=== PATIENT | female | born 1940 | race Hispanic/Latino ===

== ENCOUNTER 2018-08-31 08:02 | Emergency (ER) | payer MEDICARE, OTHER ==
[~2018-08-31] VITALS: Ht 12.7 cm; Wt 65.8 kg
--- OUTSIDE RECORDS SUMMARY | 2018-08-31 08:05 | XMS REPORT | Continuity of Care Document ---
Author Author [facility] Interface Address Unknown Phone Unavailable Problems Problem Status Onset Date Classification Date Reported Comments Source Discharge Diagnosis: Alcohol abuse 04/06/2017 04/09/2017 [facility] Discharge Diagnosis: N&V 04/06/2017 04/09/2017 [facility] VOMITING Active 04/05/2017 [facility] Atrial fibrillation Resolved Problem 04/09/2017 [facility] DM (<span ID="[id number]">Confirmed</span>) Resolved Problem 04/09/2017 [facility] Hyperlipidemia Resolved Problem 04/09/2017 [facility] Medications Medication Details Route Status Patient Instructions Ordering Provider Order Date Source Metoclopramide 10 MG Oral Tablet [Reglan] 10 mg=1 tab, PO, QID, X 10 day, # 40 tab, 0 Refill(s) Active 04/06/2017 [facility] iodixanol 100 mL, Route: IVP, Drug Form: SOLN, kg, ONCALL, STAT, Start date: 04/06/17 3:32:00 CDT, Duration: 1 doses or times, Dose=2.2ml/kg, Max [id number] -- "To be infused by Radiology Staff ONLY" Inactive 04/06/2017 [facility] Sodium Chloride 0.154 MEQ/ML Injectable Solution 1,000 mL, 1,000 ml/hr, Infuse Over: 1 hr, Route: IV, 1,000, Drug form: INJ, ONCE, Priority: STAT, kg, Start date: 04/06/17 3:20:00 CDT, Duration: 1 doses or times, Stop date: 04/06/17 3:20:00 CDT Inactive 04/06/2017 [facility] Allergies, Adverse Reactions, Alerts Substance Category Reaction Severity Reaction type Status Date Reported Comments Source Immunizations Immunization Date Given Site Status Last Updated Comments Source Results Order Name Results Value Reference Range Date Interpretation Comments Source CHEM PANEL Lactic Acid WB 1.9 mmol/L 0.5 - 2.2 04/06/2017 [facility] CHEM PANEL Lactic Acid Lvl 1.7 mMol/L 0.5 - 2.2 04/06/2017 [facility] HEMATOLOGY Split [place] Rapid 0.5 min 04/06/2017 [facility] HEMATOLOGY ACT (TEG) Rapid 113 s 86 - 118 04/06/2017 [facility] HEMATOLOGY Max Amplitude Rapid 68 mm 52 - 71 04/06/2017 [facility] HEMATOLOGY Angle Rapid 78 degrees 64 - 80 04/06/2017 [facility] HEMATOLOGY Estimated % Lysis Rapid 1.3 % 0.0 - 7.5 04/06/2017 [facility] HEMATOLOGY R-time Rapid 0.7 min 0.4 - 0.7 04/06/2017 [facility] HEMATOLOGY G-value Rapid 10.5 K d/sc 5.0 - 11.6 04/06/2017 [facility] HEMATOLOGY K-time Rapid 0.8 min 0.6 - 2.3 04/06/2017 [facility] HEMATOLOGY INR 1.09 0.85 - 1.17 04/06/2017 [facility] HEMATOLOGY PTT 29.7 s 22.9 - 35.8 04/06/2017 [facility] HEMATOLOGY PT 14.3 s 12.0 - 14.7 04/06/2017 [facility] URINE AND STOOL UA Leuk Est Negative (04/06/17 3:53 AM) Negative 04/06/2017 [facility] URINE AND STOOL Micro? Performed (04/06/17 3:53 AM) 04/06/2017 [facility] URINE AND STOOL UA Nitrite Negative (04/06/17 3:53 AM) Negative 04/06/2017 [facility] URINE AND STOOL UA Sq Epi Few /LPF Few /LPF 04/06/2017 [facility] URINE AND STOOL UA Bacteria Few /HPF None Seen /HPF 04/06/2017 [facility] URINE AND STOOL UA RBC 0-2 /HPF 0 - 2 04/06/2017 [facility] URINE AND STOOL UA WBC 0-2 /HPF None Seen /HPF 04/06/2017 [facility] URINE AND STOOL UA Glucose 250 mg/dL Negative mg/dL 04/06/2017 [facility] URINE AND STOOL UA Ketones 15 mg/dL Negative mg/dL 04/06/2017 [facility] URINE AND STOOL UA Urobilinogen 0.2 EU/dL 0.1 - 1.0 04/06/2017 [facility] URINE AND STOOL UA Blood Small *ABN* (04/06/17 3:53 AM) Negative 04/06/2017 [facility] URINE AND STOOL UA Bili Negative *NA* (04/06/17 3:53 AM) Negative 04/06/2017 [facility] URINE AND STOOL UA pH 6.0 5.0 - 8.0 04/06/2017 [facility] URINE AND STOOL UA Protein Trace *ABN* (04/06/17 3:53 AM) Negative 04/06/2017 [facility] URINE AND STOOL UA Color Yellow *NA* (04/06/17 3:53 AM) Yellow 04/06/2017 [facility] URINE AND STOOL UA Spec Grav 1.010 <=1.030 04/06/2017 [facility] URINE AND STOOL UA Turbidity Slight Cloudy (04/06/17 3:53 AM) Clear 04/06/2017 [facility] CARDIAC ENZYMES Troponin-I null 0.00 - 0.40 04/06/2017 [facility] CHEM PANEL Lipase Lvl 400 unit/L 73 - 393 04/06/2017 [facility] CHEM PANEL Globulin 3.5 g/dL 2.7 - 4.2 04/06/2017 [facility] CHEM PANEL Bili Indirect 0.2 mg/dL 0.0 - 1.0 04/06/2017 [facility] CHEM PANEL A/G Ratio 1.1 0.7 - 1.6 04/06/2017 [facility] CHEM PANEL ALT 15 unit/L 0 - 65 04/06/2017 [facility] CHEM PANEL Bili Direct 0.1 mg/dL 0.0 - 0.3 04/06/2017 [facility] CHEM PANEL Bili Total 0.3 mg/dL 0.2 - 1.3 04/06/2017 [facility] CHEM PANEL AST 15 unit/L 0 - 37 04/06/2017 [facility] CHEM PANEL Alk Phos 74 unit/L 39 - 136 04/06/2017 [facility] CHEM PANEL Albumin Lvl 4.0 g/dL 3.5 - 5.0 04/06/2017 [facility] CHEM PANEL Total Protein 7.5 g/dL 6.4 - 8.4 04/06/2017 [facility] CHEM PANEL Lactic Acid WB 3.9 mmol/L 0.5 - 2.2 04/06/2017 [facility] ELECTROLYTES AGAP 14.5 meq/L 10.0 - 20.0 04/06/2017 [facility] ELECTROLYTES eGFR 56 mL/min/1.73m2 04/06/2017 Result Comment: The eGFR is calculated using the CKD-EPI formula. In most young, healthy individuals the eGFR will be >90 mL/min/1.73m2. The eGFR declines with age. An eGFR of 60-89 may be normal in some populations, particularly the elderly, for whom the CKD-EPI formula has not been extensively validated. Use of the eGFR is not recommended in the following populations: Individuals with unstable creatinine concentrations, including patients and those with serious co-morbid conditions. Patients with extremes in muscle mass or diet. The data above are obtained from the National Kidney Disease Education Program (NKDEP) which additionally recommends that when the eGFR is used in patients with extremes of body mass index for purposes of drug dosing, the eGFR should be multiplied by the estimated BMI. [facility] ELECTROLYTES CO2 27 meq/L 24 - 32 04/06/2017 [facility] ELECTROLYTES Chloride Lvl 94 meq/L 95 - 109 04/06/2017 [facility] ELECTROLYTES Potassium Lvl 3.5 meq/L 3.5 - 5.1 04/06/2017 [facility] ELECTROLYTES Sodium Lvl 132 meq/L 135 - 145 04/06/2017 [facility] ELECTROLYTES Creatinine Lvl 1.00 mg/dL 0.50 - 1.40 04/06/2017 [facility] ELECTROLYTES BUN 18 mg/dL 7 - 22 04/06/2017 [facility] ELECTROLYTES Calcium Lvl 9.8 mg/dL 8.5 - 10.5 04/06/2017 [facility] ELECTROLYTES Glucose Lvl 238 mg/dL 70 - 99 04/06/2017 [facility] HEMATOLOGY RDW 13.8 % 11.5 - 14.5 04/06/2017 [facility] HEMATOLOGY MCHC 33.0 g/dL 32.0 - 36.0 04/06/2017 [facility] HEMATOLOGY MCH 29.9 pg 27.0 - 31.0 04/06/2017 [facility] HEMATOLOGY MCV 90.4 fL 80.0 - 98.0 04/06/2017 [facility] HEMATOLOGY Hct 38.8 % 36.0 - 48.0 04/06/2017 [facility] HEMATOLOGY MPV 7.6 fL 7.4 - 10.4 04/06/2017 [facility] HEMATOLOGY Platelet 212 K/CMM 133 - 450 04/06/2017 [facility] HEMATOLOGY Hgb 12.8 g/dL 12.0 - 16.0 04/06/2017 [facility] HEMATOLOGY RBC 4.29 M/CMM 4.20 - 5.40 04/06/2017 [facility] HEMATOLOGY WBC 9.4 K/CMM 3.7 - 10.4 04/06/2017 [facility] HEMATOLOGY Eosinophils # 0.1 K/CMM 0.0 - 0.5 04/06/2017 [facility] HEMATOLOGY Lymphocytes # 1.1 K/CMM 1.0 - 5.5 04/06/2017 [facility] HEMATOLOGY Basophils 0.3 % 0.0 - 1.0 04/06/2017 [facility] HEMATOLOGY Segs-Bands # 7.8 K/CMM 1.5 - 8.1 04/06/2017 [facility] HEMATOLOGY Monocytes # 0.4 K/CMM 0.0 - 0.8 04/06/2017 [facility] HEMATOLOGY Lymphocytes 12.1 % 20.0 - 40.0 04/06/2017 [facility] HEMATOLOGY Monocytes 4.4 % 2.0 - 12.0 04/06/2017 [facility] HEMATOLOGY Eosinophils 0.8 % 0.0 - 4.0 04/06/2017 [facility] HEMATOLOGY Segs 82.4 % 45.0 - 75.0 04/06/2017 [facility] Chest 1view DX Chest 1view DX EXAM: XR CHEST 1 VIEW DATE: 04/06/2017 4:40 AM CDT INDICATION: Cough COMPARISON: None TECHNIQUE: AP semierect chest FINDINGS: Lines and tubes: None. Lungs and pleura: No pulmonary or pleural based abnormality is identified. Heart and mediastinum: The heart size is mildly enlarged. There is a mildly tortuous thoracic aorta. Bones: No acute bony abnormality is identified. IMPRESSION: Mild cardiomegaly without acute cardiopulmonary abnormality. [place] SECTION: ER 04/06/2017 - - This report was dictated by a Manager [employer]/Fellow. I have personally reviewed the images as well as the Resident's interpretation and agree with the findings. Read by: Manuel Johnson MD Resident: Manuel Johnson MD Dictated Date/time: 04/06/17 04:59 Electronically Signed by: Nghia Nielsen MD 04/06/17 06:27 FINAL REPORT [facility] Abdomen/Pelvis w IV contrast CT Abdomen/Pelvis w IV contrast CT EXAM: CT ABDOMEN AND PELVIS WITH CONTRAST DATE: 04/06/2017 at 0336 hours INDICATION: - abdominal pain ADDITIONAL INFORMATION: None. COMPARISON: None. TECHNIQUE: Volumetric CT acquisition of the abdomen and pelvis after the intravenous administration contrast. Axial, coronal and sagittal reconstructions. Postcontrast phases: Venous and delayed. IV contrast: 100 mL of Visipaque 320 Enteric contrast: None. DLP: 1735 mGy-cm FINDINGS: Lines, tubes and hardware: None. Lower thorax: Clear. Liver: Normal. Biliary tree: No intra- or extrahepatic biliary ductal dilation. Gallbladder: Surgically absent. Pancreas: Normal. Spleen: Normal. Adrenals: Normal. Kidneys and ureters: * Mild nonspecific perinephric fat stranding of unlikely clinical significance. * Otherwise normal. Bladder: Normal. Reproductive organs: Uterus and adnexa are unremarkable. Gastrointestinal tract: Normal caliber. Appendix: Not seen. No inflammatory changes. Peritoneum, mesentery and retroperitoneum: No free air, ascites or loculated fluid. Lymph nodes: Normal. Vasculature: Normal. Bones: No acute abnormality. * Chronic compression deformity at L2 vertebral body with approximately 25% maximum central height loss. * Grade 1 anterolisthesis of L4 on L5 secondary to facet arthropathy. Soft tissues: Normal. IMPRESSION: 1. No acute abnormality identified in the abdomen or pelvis. 2. Chronic compression deformity at L2 vertebral body with approximately 25% maximum central height loss. 3. Grade 1 anterolisthesis of L4 on L5 secondary to facet arthropathy. 04/06/2017 - - This report was dictated by a Manager [employer]/Fellow. I have personally reviewed the images as well as the Resident's interpretation and agree with the findings. Read by: Manuel Johnson MD Resident: Manuel Johnson MD Dictated Date/time: 04/06/17 03:56 Electronically Signed by: Franky Vogt MD 04/06/17 06:24 FINAL REPORT [facility] Brain wo contrast CT Brain wo contrast CT EXAM: CT HEAD WITHOUT CONTRAST DATE: 04/06/2017 331 AM CDT INDICATION: 76 years old Female patient with history of AMS. TECHNIQUE: Multiple axial images were obtained through the head from vertex to the skull base. Axial bone algorithm reconstruction images are provided. COMPARISON: None. FINDINGS: There is diffuse mild to moderate cerebral volume loss causing mild ex- vacuo enlargement of the ventricular system and extra-axial fluid spaces. No evidence of obstructive hydrocephalus or pathological extra-axial fluid collection is seen. Chronic lacunar infarcts involving the right thalamus. Multiple scattered as well as confluent hypodense areas within periventricular, deep white matter bilaterally, likely related to chronic microvascular ischemic changes. No definite evidence of acute cerebral edema, mass effect, midline shift is seen. There is no intracranial hemorrhage. Basal cisterns are well preserved. There is no evidence of downward herniation at the level of foramen magnum. Calvarium is intact. Left maxillary sinus mucous retention cyst, remaining visualized paranasal sinuses are clear. Mastoid air cells are well aerated. Visualized orbits appear grossly unremarkable. Calcified atherosclerotic plaques are noted within the bilateral carotid siphons and intracranial vertebral arteries. IMPRESSION: 1. No definite territorial infarct or intracranial hemorrhage. 2. Diffuse mild to moderate cerebral volume loss. Sequela of mild chronic microvascular ischemic changes. These findings are in agreement with previous preliminary report made by retail loss prevention investigator president finance company. 04/06/2017 - - This report was dictated by a Manager [employer]/Fellow. I have personally reviewed the images as well as the Resident's interpretation and agree with the findings. Read by: Manuel Johnson MD Resident: Manuel Johnson MD Dictated Date/time: 04/06/17 03:40 Electronically Signed by: Kuldip Floyd MD 04/06/17 07:44 FINAL REPORT [facility] Vital Signs Vital Sign Value Date Comments Source Respitory Rate 20 04/06/2017 [facility] Systolic (mm Hg) 168 04/06/2017 [facility] Diastolic (mm Hg) 79 04/06/2017 [facility] Systolic (mm Hg) 180 04/06/2017 [facility] Diastolic (mm Hg) 99 04/06/2017 [facility] Respitory Rate 16 04/06/2017 [facility] Respitory Rate 15 04/06/2017 [facility] Systolic (mm Hg) 180 04/06/2017 [facility] Diastolic (mm Hg) 82 04/06/2017 [facility] Heart Rate 104 04/06/2017 [facility] Temperature Oral (F) 98.0 F 04/06/2017 [facility] Encounters Location Location Details Encounter Type Encounter Number Reason For Visit Attending Provider ADM Date DC Date Status Source [facility] Emergency [id number] Adia Garciajohnnie 04/06/2017 04/06/2017 [facility] Procedures Procedure Code Date Perfomer Comments Source Cholecystocecostomy [id number] [facility] Tubal ligation [id number] [facility]
--- OUTSIDE RECORDS SUMMARY | 2018-08-31 08:05 | XMS REPORT | Summary of Care ---
Author Author [facility] Organization [facility] Address Unknown Phone Unavailable Encounter AJAY Barker(JIL) [id number] Date(s): 04/06/17 - 04/06/17 [facility] [address] [employer] provided by [facility] [employer] [place] [address]- Discharge Diagnosis: Alcohol abuse Discharge Diagnosis: N&V (nausea and vomiting) Discharge Disposition: Home or Self Care Attending Physician: Adia Gagnon MD Vital Signs 1 2 3 Most recent to oldest [Reference Range]: 98.0 DegF (04/06/17 1:48 AM) Temperature Oral [96.4-99.1 DegF] 168/79 mmHg *HI* (04/06/17 5:22 AM) 180/99 mmHg *HI* (04/06/17 4:20 AM) 180/82 mmHg *HI* (04/06/17 3:21 AM) Blood Pressure [90-140/60-90 mmHg] 20 BRMIN (04/06/17 5:22 AM) 16 BRMIN (04/06/17 4:20 AM) 15 BRMIN (04/06/17 3:21 AM) Respiratory Rate [14-20 BRMIN] 104 bpm *HI* (04/06/17 1:48 AM) Peripheral Pulse Rate [60-100 bpm] Problem List Condition Effective Dates Status Health Status Informant Atrial Resolved fibrillation(Confirm ed) DM (diabetes Resolved mellitus)(Confirmed) Hyperlipidemia(Confi Resolved rmed) Allergies, Adverse Reactions, Alerts Substance Reaction Severity Status NKDA Active Medications NS (Bolus) IV 1,000 mL, 1,000 ml/hr, Infuse Over: 1 hr, Route: IV, 1,000, Drug form: INJ, ONCE , Priority: STAT, kg, Start date: 04/06/17 3:20:00 CDT, Duration: 1 doses or jennifer es, Stop date: 04/06/17 3:20:00 CDT Start Date: 04/06/17 Stop Date: 04/06/17 Status: Completed Reglan 10 mg oral tablet 10 mg=1 tab, PO, QID, X 10 day, # 40 tab, 0 Refill(s) Start Date: 04/06/17 Stop Date: 04/16/17 Status: Ordered Visipaque 320mg/ml 100 mL, Route: IVP, Drug Form: SOLN, kg, ONCALL, STAT, Start date: 04/06/17 3:32 :00 CDT, Duration: 1 doses or times, Dose=2.2ml/kg, Max [id number] -- "To be in fused by Radiology Staff ONLY" Start Date: 04/06/17 Stop Date: 04/06/17 Status: Completed Results ELECTROLYTES Most recent to 1 2 oldest [Reference Range]: Sodium Lvl [135-145 132 mEq/L mEq/L] *LOW* (04/06/17 2:55 AM) Potassium Lvl 3.5 mEq/L [3.5-5.1 mEq/L] (04/06/17 2:55 AM) Chloride Lvl [95-109 94 mEq/L mEq/L] *LOW* (04/06/17 2:55 AM) CO2 [24-32 mEq/L] 27 mEq/L (04/06/17 2:55 AM) AGAP [10.0-20.0 14.5 mEq/L mEq/L] (04/06/17 2:55 AM) CHEM PANEL Most recent to 1 2 oldest [Reference Range]: Creatinine Lvl 1.00 mg/dL [0.50-1.40 mg/dL] (04/06/17 2:55 AM) eGFR 56 mL/min/1.73m2 1 *NA* (04/06/17 2:55 AM) BUN [7-22 mg/dL] 18 mg/dL (04/06/17 2:55 AM) Glucose Lvl [70-99 238 mg/dL mg/dL] *HI* (04/06/17 2:55 AM) Total Protein 7.5 g/dL [6.4-8.4 g/dL] (04/06/17 2:55 AM) Albumin Lvl [3.5-5.0 4.0 g/dL g/dL] (04/06/17 2:55 AM) Globulin [2.7-4.2 3.5 g/dL g/dL] (04/06/17 2:55 AM) A/G Ratio [0.7-1.6] 1.1 (04/06/17 2:55 AM) Calcium Lvl 9.8 mg/dL [8.5-10.5 mg/dL] (04/06/17 2:55 AM) ALT [0-65 unit/L] 15 unit/L (04/06/17 2:55 AM) AST [0-37 unit/L] 15 unit/L (04/06/17 2:55 AM) Alk Phos [39-136 74 unit/L unit/L] (04/06/17 2:55 AM) Bili Total [0.2-1.3 0.3 mg/dL mg/dL] (04/06/17 2:55 AM) Bili Direct [0.0-0.3 0.1 mg/dL mg/dL] (04/06/17 2:55 AM) Bili Indirect 0.2 mg/dL [0.0-1.0 mg/dL] (04/06/17 2:55 AM) Lipase Lvl [73-393 400 unit/L unit/L] *HI* (04/06/17 2:55 AM) Lactic Acid Lvl 1.7 mMol/L [0.5-2.2 mMol/L] (04/06/17 5:11 AM) Lactic Acid WB 1.9 mmol/L 3.9 mmol/L [0.5-2.2 mmol/L] (04/06/17 5:11 AM) *HI* (04/06/17 2:55 AM) 1Result Comment: The eGFR is calculated using the [...] from the National Kidney Disease Education Program ( NKDEP) which additionally recommends that when the eGFR is used in patients with extremes of body mass index for purposes of drug dosing, the eGFR should be mul tiplied by the estimated BMI. CARDIAC ENZYMES Most recent to 1 2 oldest [Reference Range]: Troponin-I <0.02 ng/mL [0.00-0.40 ng/mL] (04/06/17 2:55 AM) URINE AND STOOL Most recent to 1 2 oldest [Reference Range]: UA Turbidity [Clear] Slight Cloudy (04/06/17 3:53 AM) UA Color [Yellow] Yellow *NA* (04/06/17 3:53 AM) UA pH [5.0-8.0] 6.0 (04/06/17 3:53 AM) UA Spec Grav 1.010 [<=1.030] (04/06/17 3:53 AM) UA Glucose [Negative 250 mg/dL mg/dL] *ABN* (04/06/17 3:53 AM) UA Blood [Negative] Small *ABN* (04/06/17 3:53 AM) UA Ketones [Negative 15 mg/dL mg/dL] *ABN* (04/06/17 3:53 AM) UA Protein Trace [Negative] *ABN* (04/06/17 3:53 AM) UA Urobilinogen 0.2 EU/dL [0.1-1.0 EU/dL] (04/06/17 3:53 AM) UA Bili [Negative] Negative *NA* (04/06/17 3:53 AM) UA Leuk Est Negative [Negative] (04/06/17 3:53 AM) UA Nitrite Negative [Negative] (04/06/17 3:53 AM) UA WBC [None Seen 0-2 /HPF /HPF] (04/06/17 3:53 AM) UA RBC [0-2 /HPF] 0-2 /HPF (04/06/17 3:53 AM) UA Bacteria [None Few /HPF Seen /HPF] (04/06/17 3:53 AM) UA Sq Epi [Few /LPF] Few /LPF (04/06/17 3:53 AM) Micro? Performed (04/06/17 3:53 AM) HEMATOLOGY Most recent to 1 2 oldest [Reference Range]: WBC [3.7-10.4 K/CMM] 9.4 K/CMM (04/06/17 2:55 AM) RBC [4.20-5.40 4.29 M/CMM M/CMM] (04/06/17 2:55 AM) Hgb [12.0-16.0 g/dL] 12.8 g/dL (04/06/17 2:55 AM) Hct [36.0-48.0 %] 38.8 % (04/06/17 2:55 AM) MCV [80.0-98.0 fL] 90.4 fL (04/06/17 2:55 AM) MCH [27.0-31.0 pg] 29.9 pg (04/06/17 2:55 AM) MCHC [32.0-36.0 33.0 g/dL g/dL] (04/06/17 2:55 AM) RDW [11.5-14.5 %] 13.8 % (04/06/17 2:55 AM) Platelet [133-450 212 K/CMM K/CMM] (04/06/17 2:55 AM) MPV [7.4-10.4 fL] 7.6 fL (04/06/17 2:55 AM) Segs [45.0-75.0 %] 82.4 % *HI* (04/06/17 2:55 AM) Lymphocytes 12.1 % [20.0-40.0 %] *LOW* (04/06/17 2:55 AM) Monocytes [2.0-12.0 4.4 % %] (04/06/17 2:55 AM) Eosinophils [0.0-4.0 0.8 % %] (04/06/17 2:55 AM) Basophils [0.0-1.0 0.3 % %] (04/06/17 2:55 AM) Segs-Bands # 7.8 K/CMM [1.5-8.1 K/CMM] (04/06/17 2:55 AM) Lymphocytes # 1.1 K/CMM [1.0-5.5 K/CMM] (04/06/17 2:55 AM) Monocytes # [0.0-0.8 0.4 K/CMM K/CMM] (04/06/17 2:55 AM) Eosinophils # 0.1 K/CMM [0.0-0.5 K/CMM] (04/06/17 2:55 AM) PT [12.0-14.7 14.3 seconds seconds] (04/06/17 4:09 AM) INR [0.85-1.17] 1.09 (04/06/17 4:09 AM) PTT [22.9-35.8 29.7 seconds seconds] (04/06/17 4:09 AM) ACT (TEG) Rapid 113 seconds [86-118 seconds] (04/06/17 4:09 AM) Split Point Rapid 0.5 minutes *NA* (04/06/17 4:09 AM) R-time Rapid 0.7 minutes [0.4-0.7 minutes] (04/06/17 4:09 AM) K-time Rapid 0.8 minutes [0.6-2.3 minutes] (04/06/17 4:09 AM) Angle Rapid [64-80 78 degrees degrees] (04/06/17 4:09 AM) Max Amplitude Rapid 68 mm [52-71 mm] (04/06/17 4:09 AM) G-value Rapid 10.5 K d/sc [5.0-11.6 K d/sc] (04/06/17 4:09 AM) Estimated % Lysis 1.3 % Rapid [0.0-7.5 %] (04/06/17 4:09 AM) Immunizations No data available for this section Procedures Procedure Date Related Diagnosis Body Site Cholecystocecostomy Tubal ligation Social History Social History Type Response Alcohol Current Smoking Status Never smoker; Exposure to Tobacco Smoke None; Cigarette Smoking Last 365 Days No; Reg Smoking Cessation Counseling No Assessment and Plan No data available for this section
[2018-08-31] MEDS ORDERED: IOPAMIDOL 300 MG/ML 15ML VIAL IT ONE (09:22)
[2018-08-31] MEDS ORDERED: LAMOTRIGINE100 MG PEG (09:27)
[2018-08-31] MEDS ORDERED: APIXABAN PEG (09:27)
[2018-08-31] MEDS ORDERED: DIABETISOURCE PEG (09:27)
[2018-08-31] MEDS ORDERED: MAGOX 400400 MG PEG (09:27)
[2018-08-31] MEDS ORDERED: POTASSIUM40 MEQ/15 PEG (09:27)
[2018-08-31] MEDS ORDERED: HUMULIN N100 UNITS/ SC (09:27)
[2018-08-31] MEDS ORDERED: LEVETIRACETAM500 MG PEG (09:27)
[2018-08-31] MEDS ORDERED: ATIVAN0.5 MG PO (09:27)
[2018-08-31] MEDS ORDERED: AMBIEN5 MG PEG (09:27)
[2018-08-31] MEDS ORDERED: GLIPIZIDE5 MG PO (09:27)
[2018-08-31] MEDS ORDERED: MIRALAX17 GM PEG (09:27)
[2018-08-31] MEDS ORDERED: VASOTEC10 M1 PEG (09:27)
[2018-08-31] MEDS ORDERED: ATORVASTATIN CA20 MG PO (09:27)
[2018-08-31] MEDS ORDERED: FAMOTIDINE20 MG PEG (09:27)
[2018-08-31] MEDS ORDERED: ULTRAM 50MG50 MG PEG (09:27)
[2018-08-31 12:22] VITALS: BP 165/98
--- NOTE | 2018-08-31 12:47 | Diagnostic Imaging Report ---
Date and Time: 08/31/2018 Procedure: Replacement of dislodged percutaneous gastrostomy catheter nitrate operator: Dr. Moss Pre-operative diagnosis: Dislodged percutaneous gastrostomy Post-operative diagnosis: Replaced percutaneous gastrostomy Conscious Sedation: None Additional Medications: None Fluoroscopy time: 0.6 minutes Frontal Air Kerma: 11.68 mGy Contrast used: 15 cc Isovue-300 Estimated blood loss: Minimal Blood products administered: None Specimens: Yang catheter, discarded Implants: 24 Cuban balloon retention gastrostomy Condition at completion: Stable Disposition: Return to emergency center DISCUSSION: Informed consent was obtained from the next of kin and documented in the medical record. The patient was placed in the supine position on the fluoroscopic table. The upper abdomen and existing Yang catheter placed percutaneously into the gastrostomy tract by emergency center personnel were prepped and draped in the standard sterile fashion. A small amount of dilute contrast material was injected through the Yang catheter with resultant opacification of the stomach. The Yang catheter was removed and a 0.0 3 5-in. Amplatz wire was gently advanced through the tract and into the gastric fundus under fluoroscopic guidance. A 24 Cuban balloon retention gastrostomy catheter was then advanced over the wire under fluoroscopic guidance. The retention balloon was inflated with 6 cc sterile saline per patient services specialist recommendations and the balloon catheter was retracted to the anterior gastric wall. The wire was removed. Injection of dilute contrast material confirmed appropriate position of the gastrostomy catheter within the distal gastric body. The catheter was then flushed with sterile saline and a sterile dressing was applied. The patient tolerated the procedure well without immediate complication. IMPRESSION: Successful replacement of a dislodged percutaneous gastrostomy catheter under fluoroscopic guidance. The new catheter is a 24 Cuban balloon retention gastrostomy and may be used immediately. Signed by: Dr. Nghia Moss M.D. on 08/31/2018 12:44 PM
--- NOTE | 2018-08-31 12:47 | Diagnostic Imaging Report ---
Date and Time: 08/31/2018 Procedure: Replacement of dislodged percutaneous gastrostomy catheter rubbing bed operator: Dr. Moss Pre-operative diagnosis: Dislodged percutaneous gastrostomy Post-operative diagnosis: Replaced percutaneous gastrostomy Conscious Sedation: None Additional Medications: None Fluoroscopy time: 0.6 minutes Frontal Air Kerma: 11.68 mGy Contrast used: 15 cc Isovue-300 Estimated blood loss: Minimal Blood products administered: None Specimens: Yang catheter, discarded Implants: 24 [place]i balloon retention gastrostomy Condition at completion: Stable Disposition: Return to emergency center DISCUSSION: Informed consent was obtained from the next of kin and documented in the medical record. The patient was placed in the supine position on the fluoroscopic table. The upper abdomen and existing Yang catheter placed percutaneously into the gastrostomy tract by emergency center personnel were prepped and draped in the standard sterile fashion. A small amount of dilute contrast material was injected through the Yang catheter with resultant opacification of the stomach. The Yang catheter was removed and a 0.0 3 5-in. Amplatz wire was gently advanced through the tract and into the gastric fundus under fluoroscopic guidance. A 24 [place]i balloon retention gastrostomy catheter was then advanced over the wire under fluoroscopic guidance. The retention balloon was inflated with 6 cc sterile saline per hospital nurse liaison recommendations and the balloon catheter was retracted to the anterior gastric wall. The wire was removed. Injection of dilute contrast material confirmed appropriate position of the gastrostomy catheter within the distal gastric body. The catheter was then flushed with sterile saline and a sterile dressing was applied. The patient tolerated the procedure well without immediate complication. IMPRESSION: Successful replacement of a dislodged percutaneous gastrostomy catheter under fluoroscopic guidance. The new catheter is a 24 [place]i balloon retention gastrostomy and may be used immediately. Signed by: Dr. Nghia Moss M.D. on 08/31/2018 12:44 PM
== END 2018-08-31 12:15 | disposition home or self-care (01) ==
LOC: ER 08:02
DX: Z43.1 Encounter for attention to gastrostomy (principal)
CPT/HCPCS: 49450; 74470; 99284; C1769; Q9967

== ENCOUNTER 2020-02-24 20:55 | Emergency (ER) | payer MEDICARE, OTHER ==
[~2020-02-24] VITALS: Ht 12.7 cm; Wt 63.5 kg
[~2020-02-24 20:55] MED LIST: AMBIEN5 MG PEG; APIXABAN PEG; ATIVAN0.5 MG PO; ATORVASTATIN CA20 MG PO; DIABETISOURCE PEG; FAMOTIDINE20 MG PEG; GLIPIZIDE5 MG PO; HUMULIN N100 UNITS/ SC; LAMOTRIGINE100 MG PEG; LEVETIRACETAM500 MG PEG; MAGOX 400400 MG PEG; MIRALAX17 GM PEG; POTASSIUM40 MEQ/15 PEG; ULTRAM 50MG50 MG PEG; VASOTEC10 M1 PEG
--- OUTSIDE RECORDS SUMMARY | 2020-02-24 20:57 | XMS REPORT | Continuity of Care Document ---
Author Author Naomie [employer] LEANDRO Chamberlain [employer] Address Unknown Phone Unavailable Care Team Providers [facility] Paramedic Name Role Phone [employer] Information [employer] Unavailable Un available Problems Problem Status Onset Date Classification Date Reported Comments Source Alcohol abuse, uncomplicated 04/06/2017 04/09/2017 [facility] Nausea with vomiting, unspecified 04/06/2017 04/09/2017 [facility] VOMITING Active 04/05/2017 [facility] Atrial fibrillation (disorder) Resolved Problem 03/2017 [facility] Diabetes mellitus (disorder) R esolved Problem 03/2017 [facility] Hyperlipidemia (disorder) Reso lved Problem 03/2017 [facility] Medications Medication Details Route Status Patient Instructions Ordering Provider Order Date Source Metoclopramide 10 MG Oral Tablet [Reglan] 10 mg = 1 tab, PO, QID, X 10 day, # 40 tab, 0 Refill(s) Active 04/06/2017 [facility] iodixanol 100 mL, Route: IVP, Drug Form: SOLN, kg, ONCALL, STAT, Start date: 04/06/17 3:32:00 CDT, Duration: 1 doses or times, Dose = 2.2ml/kg, Max dose = 100ml -- "To be infused by Radiology Staff ONLY" Inactive 04/06/2017 [facility] Sodium Chloride 0.154 MEQ/ML Injectable Solution 1,000 mL, 1,000 ml/hr, Infuse Over: 1 hr, Route: IV, 1,000, Drug form: INJ, ONCE, Priority: STAT, kg, Start date: 04/06/17 3:20:00 CDT, Duration: 1 doses or times, Stop date: 04/06/17 3:20:00 CDT Inactive 04/06/2017 [facility] Allergies, Adverse Reactions, Alerts No Known Medication Allergies Immunizations No Data Provided for This Section Results Order Name Results Value Reference Range Date Interpretation Comments Source CHEM PANEL Lactic Acid WB 1.9 0.5 - 2.2 04/06/2017 [facility] CHEM PANEL Lactic Acid Lvl 1.7 0.5 - 2.2 04/06/2017 [facility] HEMATOLOGY [place] Rapid 0.5 04/06/2017 [facility] HEMATOLOGY ACT (TEG) Rapid 113 86 - 118 04/06/2017 [facility] HEMATOLOGY Max Amplitude Rapid 68 52 - 71 04/06/2017 [facility] HEMATOLOGY Angle Rapid 78 64 - 80 04/06/2017 [facility] HEMATOLOGY Estimated % Lysis Rapid 1 .3 0.0 - 7.5 04/06/2017 [facility] HEMATOLOGY R-time Rapid 0.7 0.4 - 0.7 04/06/2017 [facility] HEMATOLOGY G-value Rapid 10.5 5.0 - 11.6 04/06/2017 [facility] HEMATOLOGY K-time Rapid 0.8 0.6 - 2.3 04/06/2017 [facility] HEMATOLOGY INR 1.09 0.85 - 1.17 04/06/2017 [facility] HEMATOLOGY PTT 29.7 22.9 - 35.8 04/06/2017 [facility] HEMATOLOGY PT 14.3 12.0 - 14.7 04/06/2017 [facility] URINE AND STOOL UA Leuk Est Negative (04/06/17 3:53 AM) Negative 04/06/2017 [facility] URINE AND STOOL Micro? Performed (04/06/17 3:53 AM) 04/06/2017 [facility] URINE AND STOOL UA Nitrite Negative (04/06/17 3:53 AM) Negative 04/06/2017 [facility] URINE AND STOOL UA Sq Epi Few /LPF Few /LPF 04/06/2017 [facility] URINE AND STOOL UA Bacteria Few /HPF None Seen /HPF 04/06/2017 [facility] URINE AND STOOL UA RBC 0-2 /HPF 0 - 2 04/06/2017 [facility] URINE AND STOOL UA WBC 0-2 /HPF None Seen /HPF 04/06/2017 [facility] URINE AND STOOL UA Glucose 250 mg/dL Negative mg/dL 04/06/2017 [facility] URINE AND STOOL UA Ketones 15 mg/dL Negative mg/dL 04/06/2017 [facility] URINE AND STOOL UA Urobilinogen 0.2 0.1 - 1.0 04/06/2017 [facility] URINE AND STOOL UA Blood Small *ABN* (04/06/17 3:53 AM) Negative 04/06/2017 [facility] URINE AND STOOL UA Bili Negative *NA* (04/06/17 3:53 AM) Negative 04/06/2017 [facility] URINE AND STOOL UA pH 6.0 5.0 - 8.0 04/06/2017 [facility] URINE AND STOOL UA Protein Trace *ABN* (04/06/17 3:53 AM) Negative 04/06/2017 [facility] URINE AND STOOL UA Color Yellow *NA* (04/06/17 3:53 AM) Yellow 04/06/2017 [facility] URINE AND STOOL UA Spec Grav 1.010 <=1.030 04/06/2017 [facility] URINE AND STOOL UA Turbidity Slight Cloudy (04/06/17 3:53 AM) Clear 04/06/2017 [facility] CARDIAC ENZYMES Troponin-I <0.02 0.00 - 0.40 04/06/2017 [facility] CHEM PANEL Lipase Lvl 400 73 - 393 04/06/2017 [facility] CHEM PANEL Globulin 3.5 2.7 - 4.2 04/06/2017 [facility] CHEM PANEL Bili Indirect 0.2 0.0 - 1.0 04/06/2017 [facility] CHEM PANEL A/G Ratio 1.1 0.7 - 1.6 04/06/2017 [facility] CHEM PANEL ALT 15 0 - 65 04/06/2017 [facility] CHEM PANEL Bili Direct 0.1 0.0 - 0.3 04/06/2017 [facility] CHEM PANEL Bili Total 0.3 0.2 - 1.3 04/06/2017 [facility] CHEM PANEL AST 15 0 - 37 04/06/2017 [facility] CHEM PANEL Alk Phos 74 39 - 136 04/06/2017 [facility] CHEM PANEL Albumin Lvl 4.0 3.5 - 5.0 04/06/2017 [facility] CHEM PANEL Total Protein 7.5 6.4 - 8.4 04/06/2017 [facility] CHEM PANEL Lactic Acid WB 3.9 0.5 - 2.2 04/06/2017 [facility] ELECTROLYTES AGAP 14.5 10.0 - 20.0 04/06/2017 [facility] ELECTROLYTES eGFR 56 04/06/2017 Result Comment: The eGFR is calculated [...] should be multiplied by the estimated BMI. [facility] ELECTROLYTES CO2 27 24 - 32 04/06/2017 [facility] ELECTROLYTES Chloride Lvl 94 95 - 109 04/06/2017 [facility] ELECTROLYTES Potassium Lvl 3.5 3.5 - 5.1 04/06/2017 [facility] ELECTROLYTES Sodium Lvl 132 135 - 145 04/06/2017 [facility] ELECTROLYTES Creatinine Lvl 1.0 0 0.50 - 1.40 04/06/2017 [facility] ELECTROLYTES BUN 18 7 - 22 04/06/2017 [facility] ELECTROLYTES Calcium Lvl 9.8 8.5 - 10.5 04/06/2017 [facility] ELECTROLYTES Glucose Lvl 238 70 - 99 04/06/2017 [facility] HEMATOLOGY RDW 13.8 11.5 - 14.5 04/06/2017 [facility] HEMATOLOGY MCHC 33.0 32.0 - 36.0 04/06/2017 [facility] HEMATOLOGY MCH 29.9 27.0 - 31.0 04/06/2017 [facility] HEMATOLOGY MCV 90.4 80.0 - 98.0 04/06/2017 [facility] HEMATOLOGY Hct 38.8 36.0 - 48.0 04/06/2017 [facility] HEMATOLOGY MPV 7.6 7.4 - 10.4 04/06/2017 [facility] HEMATOLOGY Platelet 212 133 - 450 04/06/2017 [facility] HEMATOLOGY Hgb 12.8 12.0 - 16.0 04/06/2017 [facility] HEMATOLOGY RBC 4.29 4.20 - 5.40 04/06/2017 [facility] HEMATOLOGY WBC 9.4 3.7 - 10.4 04/06/2017 [facility] HEMATOLOGY Eosinophils # 0.1 0.0 - 0.5 04/06/2017 [facility] HEMATOLOGY Lymphocytes # 1.1 1.0 - 5.5 04/06/2017 [facility] HEMATOLOGY Basophils 0.3 0.0 - 1.0 04/06/2017 [facility] HEMATOLOGY Segs-Bands # 7.8 1.5 - 8.1 04/06/2017 [facility] HEMATOLOGY Monocytes # 0.4 0.0 - 0.8 04/06/2017 [facility] HEMATOLOGY Lymphocytes 12.1 20.0 - 40.0 04/06/2017 [facility] HEMATOLOGY Monocytes 4.4 2.0 - 12.0 04/06/2017 [facility] HEMATOLOGY Eosinophils 0.8 0.0 - 4.0 04/06/2017 [facility] HEMATOLOGY Segs 82.4 45.0 - 75.0 04/06/2017 [facility] Pathology Reports No Data Provided for This Section Diagnostic Reports Report Value Date Source Chest 1view DX EXAM: XR CHEST 1 [...] acute cardiopulmonary abnormality. [place] SECTION: ER 04/06/2017 [facility] Abdomen/Pelvis w IV contrast CT EXAM: CT [...] IMPRESSION: 1. No acute abnormality identified in t he abdomen or pelvis. 2. Chronic compression deformity at L2 vertebral body with approximately 25% maximum central height loss. 3. Grade 1 anterolisthesis of L4 on L5 secondary to facet arthropathy. 04/06/2017 [facility] Brain wo contrast CT EXAM: CT HEAD [...] IMPRESSION: 1. No definite territorial infarct or in tracranial hemorrhage. 2. Diffuse mild to moderate cerebral vol ume loss. Sequela of mild chronic microvascular ischemic changes. These findings are in agreement with previous preliminary report made by international account representative fixed income trading vice president. 04/06/2017 [facility] Consultation Notes No Data Provided for This Section Discharge Summaries No Data Provided for This Section History and Physicals No Data Provided for This Section Vital Signs Vital Sign Value Date Comments Source Respitory Rate 20 04/06/2017 [facility] Systolic (mm Hg) 168 04/06/2017 [facility] Diastolic (mm Hg) 79 04/06/2017 [facility] Systolic (mm Hg) 180 04/06/2017 [facility] Diastolic (mm Hg) 99 04/06/2017 [facility] Respitory Rate 16 04/06/2017 [facility] Respitory Rate 15 04/06/2017 [facility] Systolic (mm Hg) 180 04/06/2017 [facility] Diastolic (mm Hg) 82 04/06/2017 [facility] Heart Rate 104 04/06/2017 [facility] Temperature Oral (F) 98.0 F 04/06/2017 [facility] Encounters Location Location Details Encounter Type Encounter Number Reason For Visit Attending Provider ADM Date DC Date Status Source [facility] Emergency [id number] Adia Garcias 04/06/2017 04/06/2017 [facility] Procedures Procedure Code Date Perfomer Comments Source Cholecystocecostomy [id number] [facility] Tubal ligation [id number] [facility] Assessment and Plan No Data Provided for This Section Plan of Care No Data Provided for This Section Social History Social History Date Source Social History TypeResponse Alcohol Current Smoking Status Never smoker; Exposure to Tobacco Smoke None; Cigarette Smoking Last 365 Days No; Reg Smoking Cessation Counseling No 04/06/2017 [facility] Family History No Data Provided for This Section Advance Directives No Data Provided for This Section Functional Status No Data Provided for This Section
--- OUTSIDE RECORDS SUMMARY | 2020-02-24 20:58 | XMS REPORT ---
Author Author [facility] t Organization [facility] Address [address] [place] [address] Phone Unavailable Care Team Providers Care Tower Erector Name Role Phone RATNA AL MD PCP Unavailable Aguila CRANE Attphys Unavailable SHIVANI T CARLITOS Attphys Unavailable JosesNiki Attphys SHIVANI T CARLITOS Admphys Unavailable Problems Condition Name Condition Details Condition Category Status Onset Date Resolution Date Last Treatment Date Treating Clinician Comments Source VOMITING VOMI TING Active 04/05/2017 [facility] Diagnosis Active 2017-04-05 00:00:00 2017-04-17 14:26:00 [facility] Atrial fibrillation (disorder) Atrial fibrillation (disorder) Resolved Problem 04/09/2017 [facility] Problem Res olved 2017-04-09 01:10:57 [facility] Diabetes mellitus (disorder) D iabetes mellitus (disorder) Resolved Problem 04/09/2017 [facility] Problem Res olved 2017-04-09 01:10:57 [facility] Hyperlipidemia (disorder) Hype rlipidemia (disorder) Resolved Problem 04/09/2017 [facility] Problem Resolved 2017-04-09 01:10:[address] [facility] [address] Alcohol abuse, uncomplicated A lcohol abuse, uncomplicated 04/06/2017 04/09/2017 [facility] Problem 2017-04-06 05:00:00 2017-04-09 01:10:57 2017-04-09 01:10:57 [facility] Nausea with vomiting, unspecified Nausea with vomiting, unspecified 04/06/2017 04/09/2017 [facility] Problem 2017-04-06 05:00:00 2017-04-09 01:10:57 2017-04-09 01:10:57 M [facility] Allergies, Adverse Reactions, Alerts This patient has no known allergies or adverse reactions. Social History Social Habit Start Date Stop Date Quantity Comments Source Social History 2017-04-06 08:58:30 2017-04-06 08:58:30 [facility] Medications Ordered Medication Name Filled Medication Name Start Date Stop Da te Current Medication? Ordering Clinician Indication Dosage Frequency Signature (SIG) Comments Components Source Metoclopramide 10 MG Oral Tablet [Reglan] 2017-04-06 10:49:00 Yes 10 mg = 1 tab, PO, QID, X 10 day, # 40 tab, 0 Refill(s) [facility] iodixanol 2017-04-06 08:32:00 No 100 mL, Route: IVP, Drug Form: SOLN, kg, ONCALL, STAT, Start date: 04/06/17 3:32:00 CDT, Duration: 1 doses or times, Dose = 2.2ml/kg, Max dose = 100ml -- "To be infused by Radiology Staff ONLY" [facility] ter Sodium Chloride 0.154 MEQ/ML Injectable Solution 2017-04-06 08:2 0:00 No 1,000 mL, 1,000 ml/hr, Infus e Over: 1 hr, Route: IV, 1,000, Drug form: INJ, ONCE, Priority: STAT, kg, Start date: 04/06/17 3:20:00 CDT, Duration: 1 doses or times, Stop date: 04/06/17 3:20:00 CDT [facility] Apixaban Apixaban Yes 5 Every 12 Hours [facility] Atorvastatin Calcium 20 Mg Tablet Atorvastatin Calcium 20 Mg Tablet Yes 40 Bedtime [facility] Diabetisource Liquid Diabetisource Liquid Yes 65 [facility] Enalapril Maleate (Vasotec) 10 Mg Tablet Enalapril Mal eate (Vasotec) 10 Mg Tablet Yes 20 Daily [facility] Famotidine 20 Mg Tab Famotidine 20 Mg Tab Yes 20 Daily [facility] Glipizide 5 Mg Tablet Glipizide 5 Mg Tablet Yes 10 Twice A Day [facility] Insulin Human Nph (Humulin N) 100 Units/Ml Ml Insulin Human Nph (Humulin N) 100 Units/Ml Ml Yes 8 Every 8 Hours [facility] Lamotrigine 100 Mg Tablet Lamotrigine 100 Mg Tablet Yes 25 Twice A Day [facility] Levetiracetam 500 Mg Tablet Levetiracetam 500 Mg Tablet Yes 100 Twice A Day [facility] Lorazepam (Ativan*) 0.5 Mg Tablet Lorazepam (Ativan*) 0.5 Mg Tablet Yes .5 Every 8 Hours as needed for Anxiety [facility] Magnesium Oxide (Magox 400) 400 Mg Tablet Magnesium Ox charis (Magox 400) 400 Mg Tablet Yes 1 Daily [facility] Polyethylene Glycol 3350 (Miralax) 17 Gm Powd.pack Yonatan yethylene Glycol 3350 (Miralax) 17 Gm Powd.pack Yes 17 Daily [facility] Potassium Chloride 40 Meq/15 Ml Liquid Potassium Chloride 40 Meq /15 Ml Liquid Yes 20 Daily [facility] Tramadol Hcl (Ultram 50MG*) 50 Mg Tab Tramadol Hcl (Ultram 50MG*) 5 0 Mg Tab Yes 50 Every 8 Hours as needed for Pain [facility] Zolpidem Tartrate (Ambien) 5 Mg Tablet Zolpidem Tartrate (Ambien ) 5 Mg Tablet Yes 5 Bedtime [facility] Vital Signs Vital Name Observation Time Observation Value Comments Source Respitory Rate 2017-04-06 10:22:00 [facility] Systolic (mm Hg) 2017-04-06 10:22:00 [facility] Diastolic (mm Hg) 2017-04-06 10:22:00 [facility] Systolic (mm Hg) 2017-04-06 09:20:00 [facility] Diastolic (mm Hg) 2017-04-06 09:20:00 [facility] Respitory Rate 2017-04-06 09:20:00 [facility]esh [facility] Respitory Rate 2017-04-06 08:21:00 Vignesh as [facility] Systolic (mm Hg) 2017-04-06 08:21:00 Geeta excholo [facility] Diastolic (mm Hg) 2017-04-06 08:21:00 [facility] Heart Rate 2017-04-06 06:48:00 [facility] Temperature Oral (F) 2017-04-06 06:48:00 98.0 F [facility] Procedures Procedure Date / Time Performed Performing Clinician Sourc e Cholecystocecostomy [facility] Tubal ligation [facility] Encounters Start Date/Time End Date/Time Encounter Type Admission Type Attendi [facility] Care Department Encounter ID Source 2018-08-31 08:02:00 2018-08-31 12:15:00 Departed Emergency Room 1 NICO CRANE [facility] [id number] [facility] 2017-04-06 06:46:00 2017-04-06 11:15:00 Emergency [facility] [id number] [facility] 2017-04-06 01:46:00 2017-04-06 06:15:00 Outpatient Adia Gagnon [facility] [id number] Results Test Description Test Time Test Comments Results Result Comments Source IR CONSULT 2018-08-31 12:40:00 [facility] [address] [place] [address] Patient Name: LEANDRO HAND MR #: [id number] : 1940 Age/Sex: 78/F Req #: [id number] Adm Physician: Ordered by: NICO CRANE MD Report #: [id number] Location: ER Room/Bed: Procedure: [id number] DX/IR CONSULT Exam Date: Exam Time: REPORT STATUS: Signed Date and Time: 08/31/2018 Procedure: Replacement of dislodged percutaneous gastrostomy catheter 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 Mckeon Pre-operative diagnosis: Dislodged percutaneous gastrostomy Post- operative diagnosis: Replaced percutaneous gastrostomy Conscious Sedation: None Additional Medications: None Fluoroscopy time: 0.6 minutes Frontal Air Kerma: 11.68 mGy Contrast used: 15 cc Isovue-300 Estimated blood loss: Minimal Blood products administered: None Specimens: Yang catheter, discarded Implants: 24 [place] balloon retention gastrostomy Condition at completion: Stable Disposition: Return to emergency center DISCUSSION: Informed consent was obtained from the next of kin and documented in the medical record. The patient was placed in the supine position on the fluoroscopic table. The upper abdomen and existing Yang catheter placed percutaneously into the gastrostomy tract by emergency center personnel were prepped and draped in the standard sterile fashion. A small amount of dilute contrast material was injected through the Yang catheter with resultant opacification of the stomach. The Yang catheter was removed and a 0.0 3 5-in. Amplatz wire was gently advanced through the tract and into the gastric fundus under fluoroscopic guidance. A 24 [place] balloon retention gastrostomy catheter was then advanced over the wire under fluoroscopic guidance. The retention balloon was inflated with 6 cc sterile saline per lead technical writer recommendations and the balloon catheter was retracted to the anterior gastric wall. The wire was removed. Injection of dilute contrast material confirmed a ppropriate position of the gastrostomy catheter within the distal gastric body. The catheter was then flushed with sterile saline and a sterile dressing was applied. The patient tolerated the procedure well without immediate complication. IMPRESSION: Successful replacement of a dislodged percutaneous gastrostomy catheter under fluoroscopic guidance. The new catheter is a 24 [place] balloon retention gastrostomy and may be used immediately. Signed by: Dr. Leyla Mckeon M.D. 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 The patient was placed in the supine position on the fluoroscopic table. The upper abdomen and existing Yang catheter placed percutaneously into the gastrostomy tract by emergency center personnel were prepped and draped in the standard sterile fashion. A small amount of dilute contrast material was injected through the Yang catheter with resultant opacification of the stomach. The Yang catheter was removed and a 0.0 3 5-in. Amplatz wire was gently advanced through the tract and into the gastric fundus under fluoroscopic guidance. A 24 [place] balloon retention gastrostomy catheter was then advanced over the wire under fluoroscopic guidance. The retention balloon was inflated with 6 cc sterile saline per lead technical writer recommendations and the balloon catheter was retracted to the anterior gastric wall. The wire was removed. Injection of di lute contrast material confirmed appropriate position of the gastrostomy catheter within the distal gastric body. The catheter was then flushed with sterile saline and a sterile dressing was applied. The patient tolerated the procedure well without immediate complication. IMPRESSION: Successful replacement of a dislodged percutaneous gastrostomy catheter under fluoroscopic guidance. The new catheter is a 24 [place] balloon retention gastrostomy and may be used immediately. Signed by: Dr. Leyla Mckeon M.D. on 08/31/2018 12:44 PM Dictated By: LEYLA MCKEON MD 1244 Transcribed By: RAMON on 08/31/18 1244 COPY TO: NICO CRANE MD POC Glucose, Blood 2017-07-16 11:45:00 Test Item POC Glucose (test code = POCGLUC) 244 mg/dL 70-115 H If you consider your patient critically ill, the Debi Accu-Chek InformII metershould not be used for Glucose determinations.Draw a venous Glucose and send to the Main Lab for Analysis. POC Glucose, [id number] 07:38:00* Test Item Value Reference Range Interpretation Comments POC Glucose (test code = POCGLUC) 204 mg/dL 70-115 H If you consider your patient critically ill, the Debi Accu-Chek InformII metershould not be used for Glucose determinations.Draw a venous Glucose and send to the Main Lab for Analysis. Basic Metabolic [id number] 07:22:00* Test Item Value Reference Range Interpretation Comments Sodium (test code = NA) 137 mmol/L 135-145 N Potassium (test code = K) 4.2 mmol/L 3.5-5.1 N Chloride (test code = CL) 101 mmol/L 98-105 N Carbon Dioxide (test code = CO2) 26 mmol/L 22-29 N Glucose (test code = GLU) 209 mg/dL 70-115 H Blood Urea Nitrogen (test code = BUN) 17 mg/dL 8-23 N Creatinine (test code = CREAT) 0.9 mg/dL 0.5-0.9 N Calcium (test code = CA) 9.3 mg/dL 8.3-10.5 N BUN/Creatinine Ratio (test code = BCRATIO) 18.9 Anion Gap (test code = AGAP) 10 mmol/L 7-16 N Estimated GFR (test code = GFR) >60 mL/min/1.73m2 eGFR (estimated Glomerular Filtration Rate) is an estimated value,calculated from the patient's serum creatinine using the MDRD equation.It is NOT the patient's actual GFR. The eGFR provides a more clinicallyuseful measure of kidney disease than serum creatinine alone.This calculation takes sex and race into account, if the informationis provided. If the race is not provided, and the patient isAfrican-Armenian, multiply by 1.212. If sex is not provided, and thepatient is female, multiply by 0.742. Results for patients <18 years ofage have not been validated by the MDRD study and should be interpretedwith caution.eGFR Result Interpretation:eGFR > or = 60 is in the Normal RangeeGFR < 60 may mean kidney diseaseeGFR < 15 may mean kidney failureRanges recommended by the National Kidney Found ation,http://nkdep.nih.gov Magnesium, [id number] 07:22:00* Test Item Value Reference Range Interpretation Comments Magnesium (test code = MG) 2.0 mg/dL 1.7-2.5 N [id number] 07:22:00* Test Item Value Reference Range Interpretation Comments Phosphorus (test code = PO4) 3.0 mg/dL 2.70-4.50 N CBC with [id number] 07:05:00* Test Item Value Reference Range Interpretation Comments WBC (test code = WBC) 7.2 K/cumm 4.4-10.5 N RBC (test code = RBC) 3.53 M/cumm 3.75-5.20 L Hemoglobin (test code = HGB) 10.9 gm/dL 12.2-14.8 L Hematocrit (test code = HCT) 32.4 % 36.5-44.4 L MCV (test code = MCV) 91.7 fL 80-100 N MCH (test code = MCH) 30.8 pg 27.0-32.5 N MCHC (test code = MCHC) 33.6 g/dL 32.0-37.5 N RDW (test code = RDW) 13.0 % 11.5-14.5 N Platelet Count (test code = PLTCT) 211 K/cumm 140-440 N MPV (test code = MPV) 7.6 fL Diff Method (test code = DIFFM) Auto Neutrophil (test code = NEUT) 67.0 % 36-70 N Lymphocyte (test code = LYMPH) 25.0 % 12-44 N Monocyte (test code = MONO) 6.2 % 0-11 N Eosinophil (test code = EOS) 1.6 % 0-7 N Basophil (test code = BASO) 0.2 % 0-2 N Neutro Abs (test code = ANEUT) 4.8 K/cumm 1.6-7.4 N Lymph Abs (test code = ALYMPH) 1.8 K/cumm 0.5-4.6 N [place] Abs (test code = AMONO) 0.4 K/cumm 0.0-1.2 N Eos Abs (test code = AEOS) 0.11 K/cumm 0.00-0.74 N Baso Abs (test code = ABASO) 0.0 K/cumm 0.00-0.21 N POC Glucose, [id number] 20:27:00* Test Item Value Reference Range Interpretation Comments POC Glucose (test code = POCGLUC) 260 mg/dL 70-115 H Notify RN or MDIf you consider your patient critically ill, the Debi Accu-Chek InformII metershould not be used for Glucose determinations.Draw a venous Glucose and send to the Main Lab for Analysis. POC Glucose, [id number] 17:11:00* Test Item Value Reference Range Interpretation Comments POC Glucose (test code = POCGLUC) 184 mg/dL 70-115 H If you consider your patient critically ill, the Debi Accu-Chek InformII metershould not be used for Glucose determinations.Draw a venous Glucose and send to the Main Lab for Analysis. POC Glucose, [id number] 11:30:00* Test Item Value Reference Range Interpretation Comments POC Glucose (test code = POCGLUC) 243 mg/dL 70-115 H If you consider your patient critically ill, the Debi Accu-Chek InformII metershould not be used for Glucose determinations.Draw a venous Glucose and send to the Main Lab for Analysis. POC Glucose, [id number] 08:24:00* Test Item Value Reference Range Interpretation Comments POC Glucose (test code = POCGLUC) 187 mg/dL 70-115 H If you consider your patient critically ill, the Debi Accu-Chek InformII metershould not be used for Glucose determinations.Draw a venous Glucose and send to the Main Lab for Analysis. Basic Metabolic [id number] 07:19:00* Test Item Value Reference Range Interpretation Comments Sodium (test code = NA) 138 mmol/L 135-145 N Potassium (test code = K) 2.9 mmol/L 3.5-5.1 LL Chloride (test code = CL) 99 mmol/L 98-105 N Carbon Dioxide (test code = CO2) 29 mmol/L 22-29 N Glucose (test code = GLU) 180 mg/dL 70-115 H Blood Urea Nitrogen (test code = BUN) 13 mg/dL 8-23 N Creatinine (test code = CREAT) 0.8 mg/dL 0.5-0.9 N Calcium (test code = CA) 9.1 mg/dL 8.3-10.5 N BUN/Creatinine Ratio (test code = BCRATIO) 16.3 Anion Gap (test code = AGAP) 10 mmol/L 7-16 N Estimated GFR (test code = GFR) >60 mL/min/1.73m2 eGFR (estimated Glomerular Filtration Rate) is an estimated value,calculated from the patient's serum creatinine using the MDRD equation.It is NOT the patient's actual GFR. The eGFR provides a more clinicallyuseful measure of kidney disease than serum creatinine alone.This calculation takes sex and race into account, if the informationis provided. If the race is not provided, and the patient isAfrican-Armenian, multiply by 1.212. If sex is not provided, and thepatient is female, multiply by 0.742. Results for patients <18 years ofage have not been validated by the MDRD study and should be interpretedwith caution.eGFR Result Interpretation:eGFR > or = 60 is in the Normal RangeeGFR < 60 may mean kidney diseaseeGFR < 15 may mean kidney failureRanges recommended by the National Kidney Found ation,http://nkdep.nih.gov Magnesium, [id number] 07:18:00* Test Item Value Reference Range Interpretation Comments Magnesium (test code = MG) 1.3 mg/dL 1.7-2.5 L [id number] 07:18:00* Test Item Value Reference Range Interpretation Comments Phosphorus (test code = PO4) 3.0 mg/dL 2.70-4.50 N CBC with [id number] 06:55:00* Test Item Value Reference Range Interpretation Comments WBC (test code = WBC) 8.8 K/cumm 4.4-10.5 N RBC (test code = RBC) 3.49 M/cumm 3.75-5.20 L Hemoglobin (test code = HGB) 10.7 gm/dL 12.2-14.8 L Hematocrit (test code = HCT) 31.4 % 36.5-44.4 L MCV (test code = MCV) 90.2 fL 80-100 N MCH (test code = MCH) 30.7 pg 27.0-32.5 N MCHC (test code = MCHC) 34.1 g/dL 32.0-37.5 N RDW (test code = RDW) 12.9 % 11.5-14.5 N Platelet Count (test code = PLTCT) 195 K/cumm 140-440 N MPV (test code = MPV) 7.7 fL Diff Method (test code = DIFFM) Auto Neutrophil (test code = NEUT) 77.3 % 36-70 H Lymphocyte (test code = LYMPH) 16.0 % 12-44 N Monocyte (test code = MONO) 5.7 % 0-11 N Eosinophil (test code = EOS) 0.7 % 0-7 N Basophil (test code = BASO) 0.3 % 0-2 N Neutro Abs (test code = ANEUT) 6.8 K/cumm 1.6-7.4 N Lymph Abs (test code = ALYMPH) 1.4 K/cumm 0.5-4.6 N [place] Abs (test code = AMONO) 0.5 K/cumm 0.0-1.2 N Eos Abs (test code = AEOS) 0.06 K/cumm 0.00-0.74 N Baso Abs (test code = ABASO) 0.0 K/cumm 0.00-0.21 N POC Glucose, [id number] 20:31:00* Test Item Value Reference Range Interpretation Comments POC Glucose (test code = POCGLUC) 232 mg/dL 70-115 H Notify RN or MDIf you consider your patient critically ill, the Debi Accu-Chek InformII metershould not be used for Glucose determinations.Draw a venous Glucose and send to the Main Lab for Analysis. POC Glucose, [id number] 15:41:00* Test Item Value Reference Range Interpretation Comments POC Glucose (test code = POCGLUC) 197 mg/dL 70-115 H Notify RN or MDIf you consider your patient critically ill, the Debi Accu-Chek InformII metershould not be used for Glucose determinations.Draw a venous Glucose and send to the Main Lab for Analysis. POC Glucose, [id number] 12:38:00* Test Item Value Reference Range Interpretation Comments POC Glucose (test code = POCGLUC) 173 mg/dL 70-115 H Notify RN or MDIf you consider your patient critically ill, the Debi Accu-Chek InformII metershould not be used for Glucose determinations.Draw a venous Glucose and send to the Main Lab for Analysis. POC Glucose, [id number] 08:47:00* Test Item Value Reference Range Interpretation Comments POC Glucose (test code = POCGLUC) 220 mg/dL 70-115 H Notify RN or MDIf you consider your patient critically ill, the Debi Accu-Chek InformII metershould not be used for Glucose determinations.Draw a venous Glucose and send to the Main Lab for Analysis. POC Glucose, [id number] 22:14:00* Test Item Value Reference Range Interpretation Comments POC Glucose (test code = POCGLUC) 188 mg/dL 70-115 H If you consider your patient critically ill, the Debi Accu-Chek InformII metershould not be used for Glucose determinations.Draw a venous Glucose and send to the Main Lab for Analysis. POC Glucose, [id number] 16:03:00* Test Item Value Reference Range Interpretation Comments POC Glucose (test code = POCGLUC) 234 mg/dL 70-115 H Notify RN or MDIf you consider your patient critically ill, the Debi Accu-Chek InformII metershould not be used for Glucose determinations.Draw a venous Glucose and send to the Main Lab for Analysis. MRI BRAIN W/WO [id number] 15:44:05MRI BRAIN W/WO CONTRASTLOCATION: [id number]: new onset seizure Comparison studies: MRI of the brain without contrast 07/12/2017.TECHNIQUE: Multiplanar, T1 weighted MR images of the brain were obtained before andafter the administration of intravenous, gadolinium based contrast.Axial diffusion weighted MR images of the brain were obtained as well. DISCUSSION:Scalp: Unremarkable.Bone marrow: Unremarkable.Brain sulci: Appropriate for patient's age.Ventricles: Normal in size and configuration. No hydrocephalus.Extra-axial spaces:No masses or fluid collections.Parenchyma:No abnormal parenchymal, leptomeningeal, or dural enhancement is seen.No gross mass, hemorrhage, or acute vascular insults.Mild supratentorial chronic microvascular ischemic changes are betterseen on prior MRI.Vessels: Grossly unremarkable.Sellar/Suprasellar region: No abnormalities.Craniocervical juncti on: There are mild to moderate degenerative changesthroughout the upper cervical spineIMPRESSION: 1. No evidence for acute ischemia. No abnormal intracranialen hancement.2. No significant changes when compared to brain MRI dated 07/12/2017. POC Glucose, [id number] 14:07:00* Test Item Value Reference Range Interpretation Comments POC Glucose (test code = POCGLUC) 239 mg/dL 70-115 H If you consider your patient critically ill, the Debi Accu-Chek InformII metershould not be used for Glucose determinations.Draw a venous Glucose and send to the Main Lab for Analysis. POC Glucose, [id number] 07:35:00* Test Item Value Reference Range Interpretation Comments POC Glucose (test code = POCGLUC) 175 mg/dL 70-115 H If you consider your patient critically ill, the Debi Accu-Chek InformII metershould not be used for Glucose determinations.Draw a venous Glucose and send to the Main Lab for Analysis. CBC with [id number] 06:53:00* Test Item Value Reference Range Interpretation Comments WBC (test code = WBC) 6.1 K/cumm 4.4-10.5 N RBC (test code = RBC) 3.56 M/cumm 3.75-5.20 L Hemoglobin (test code = HGB) 10.8 gm/dL 12.2-14.8 L Hematocrit (test code = HCT) 33.5 % 36.5-44.4 L MCV (test code = MCV) 94.0 fL 80-100 N MCH (test code = MCH) 30.4 pg 27.0-32.5 N MCHC (test code = MCHC) 32.3 g/dL 32.0-37.5 N RDW (test code = RDW) 13.7 % 11.5-14.5 N Platelet Count (test code = PLTCT) 216 K/cumm 140-440 N MPV (test code = MPV) 6.9 fL Diff Method (test code = DIFFM) Auto Neutrophil (test code = NEUT) 56.9 % 36-70 N Lymphocyte (test code = LYMPH) 34.8 % 12-44 N Monocyte (test code = MONO) 5.1 % 0-11 N Eosinophil (test code = EOS) 2.8 % 0-7 N Basophil (test code = BASO) 0.4 % 0-2 N Neutro Abs (test code = ANEUT) 3.5 K/cumm 1.6-7.4 N Lymph Abs (test code = ALYMPH) 2.1 K/cumm 0.5-4.6 N [place] Abs (test code = AMONO) 0.3 K/cumm 0.0-1.2 N Eos Abs (test code = AEOS) 0.17 K/cumm 0.00-0.74 N Baso Abs (test code = ABASO) 0.0 K/cumm 0.00-0.21 N Hepatic Function [id number] 06:40:00* Test Item Value Reference Range Interpretation Comments Prot Total (test code = TP) 5.6 g/dL 6.4-8.3 L Albumin (test code = ALB) 3.3 g/dL 3.5-5.2 L A/G Ratio (test code = AGRATIO) 1.4 Ratio Globulin (test code = GLOB) 2.3 2.9-3.1 L Bili Total (test code = TBIL) 0.2 mg/dL 0.1-0.9 N Bili Direct (test code = DBIL) <0.2 mg/dL 0.0-0.3 N Bili Indirect (test code = IBIL) 0.1 Alk Phos (test code = APHOS) 63 U/L 35-104 N AST (test code = AST) 11 U/L 1-32 N ALT (test code = ALT) 6 U/L 1-33 N Basic Metabolic [id number] 06:40:00* Test Item Value Reference Range Interpretation Comments Sodium (test code = NA) 138 mmol/L 135-145 N Potassium (test code = K) 3.5 mmol/L 3.5-5.1 N Chloride (test code = CL) 101 mmol/L 98-105 N Carbon Dioxide (test code = CO2) 28 mmol/L 22-29 N Glucose (test code = GLU) 169 mg/dL 70-115 H Blood Urea Nitrogen (test code = BUN) 26 mg/dL 8-23 H Creatinine (test code = CREAT) 1.0 mg/dL 0.5-0.9 H Calcium (test code = CA) 8.9 mg/dL 8.3-10.5 N BUN/Creatinine Ratio (test code = BCRATIO) 26.0 Anion Gap (test code = AGAP) 9 mmol/L 7-16 N Estimated GFR (test code = GFR) 58 mL/min/1.73m2 eGFR (estimated Glomerular Filtration Rate) is an estimated value,calculated from the patient's serum creatinine using the MDRD equation.It is NOT the patient's actual GFR. The eGFR provides a more clinicallyuseful measure of kidney disease than serum creatinine alone.This calculation takes sex and race into account, if the informationis provided. If the race is not provided, and the patient isAfrican-Armenian, multiply by 1.212. If sex is not provided, and thepatient is female, multiply by 0.742. Results for patients <18 years ofage have not been validated by the MDRD study and should be interpretedwith caution.eGFR Result Interpretation:eGFR > or = 60 is in the Normal RangeeGFR < 60 may mean kidney diseaseeGFR < 15 may mean kidney failureRanges recommended by the National Kidney Found ation,http://nkdep.nih.gov POC Glucose, [id number] 20:48:00* Test Item Value Reference Range Interpretation Comments POC Glucose (test code = POCGLUC) 204 mg/dL 70-115 H If you consider your patient critically ill, the Debi Accu-Chek InformII metershould not be used for Glucose determinations.Draw a venous Glucose and send to the Main Lab for Analysis. POC Glucose, [id number] 16:50:00* Test Item Value Reference Range Interpretation Comments POC Glucose (test code = POCGLUC) 285 mg/dL 70-115 H If you consider your patient critically ill, the Debi Accu-Chek InformII metershould not be used for Glucose determinations.Draw a venous Glucose and send to the Main Lab for Analysis. POC Glucose, [id number] 12:04:00* Test Item Value Reference Range Interpretation Comments POC Glucose (test code = POCGLUC) 279 mg/dL 70-115 H If you consider your patient critically ill, the Debi Accu-Chek InformII metershould not be used for Glucose determinations.Draw a venous Glucose and send to the Main Lab for Analysis. MRI BRAIN WO [id number] 10:51:01MRI OF THE BRAIN WITHOUT GADOLINIUMLOCATION CODE: [id number]: Seizure/strokeTECHNIQUE:Axial: T1, T2, FLAIR, DWI, ADC map, T2 GRE, Coronal: B3Bxzwwdaq: [id number]: MR brain dated 11/03/2016FINDINGS:There is no diffusion restriction to suggest acute ischemia. Moderatediffuse. Ventricular white matter increased T2/FLAIR signal changes areagain seen. Similar changes involve the subcortical white matter areasparticularly in the frontal lobes.No evidence of hemorrhage or extra-axial fluid collections.No masses or extra-axial fluid collections are seen. The exp ectedvascular flow-voids are present. The visualized aspects of the globes, bony calvarium and upper cervicalcord are unremarkable.Mucous retention cyst noted i n the left maxillary sinus. Othervisualized paranasal sinuses are clear. Mastoid air spaces are clear.IMPRESSION:1. No evidence of acute ischemia or infarct. N o acute hemorrhage.2. Nonspecific chronic periventricular white matter/subcort ical whitematter changes, likely chronic microvascular changes.POC Glucose, [id number] 07:56:00* Test Item Value Reference Range Interpretation Comments POC Glucose (test code = POCGLUC) 204 mg/dL 70-115 H If you consider your patient critically ill, the Debi Accu-Chek InformII metershould not be used for Glucose determinations.Draw a venous Glucose and send to the Main Lab for Analysis. Basic Metabolic [id number] 05:45:00* Test Item Value Reference Range Interpretation Comments Sodium (test code = NA) 135 mmol/L 135-145 N Potassium (test code = K) 3.3 mmol/L 3.5-5.1 L Chloride (test code = CL) 94 mmol/L 98-105 L Carbon Dioxide (test code = CO2) 30 mmol/L 22-29 H Glucose (test code = GLU) 198 mg/dL 70-115 H Blood Urea Nitrogen (test code = BUN) 23 mg/dL 8-23 N Creatinine (test code = CREAT) 1.3 mg/dL 0.5-0.9 H Calcium (test code = CA) 9.3 mg/dL 8.3-10.5 N BUN/Creatinine Ratio (test code = BCRATIO) 17.7 Anion Gap (test code = AGAP) 11 mmol/L 7-16 N Estimated GFR (test code = GFR) 43 mL/min/1.73m2 eGFR (estimated Glomerular Filtration Rate) is an estimated value,calculated from the patient's serum creatinine using the MDRD equation.It is NOT the patient's actual GFR. The eGFR provides a more clinicallyuseful measure of kidney disease than serum creatinine alone.This calculation takes sex and race into account, if the informationis provided. If the race is not provided, and the patient isAfrican-Armenian, multiply by 1.212. If sex is not provided, and thepatient is female, multiply by 0.742. Results for patients <18 years ofage have not been validated by the MDRD study and should be interpretedwith caution.eGFR Result Interpretation:eGFR > or = 60 is in the Normal RangeeGFR < 60 may mean kidney diseaseeGFR < 15 may mean kidney failureRanges recommended by the National Kidney Found ation,http://nkdep.nih.gov Magnesium, [id number] 05:45:00* Test Item Value Reference Range Interpretation Comments Magnesium (test code = MG) 2.0 mg/dL 1.7-2.5 N CBC with [id number] 05:36:00* Test Item Value Reference Range Interpretation Comments WBC (test code = WBC) 6.0 K/cumm 4.4-10.5 N RBC (test code = RBC) 3.63 M/cumm 3.75-5.20 L Hemoglobin (test code = HGB) 10.8 gm/dL 12.2-14.8 L Hematocrit (test code = HCT) 33.6 % 36.5-44.4 L MCV (test code = MCV) 92.6 fL 80-100 N MCH (test code = MCH) 29.8 pg 27.0-32.5 N MCHC (test code = MCHC) 32.2 g/dL 32.0-37.5 N RDW (test code = RDW) 13.5 % 11.5-14.5 N Platelet Count (test code = PLTCT) 214 K/cumm 140-440 N MPV (test code = MPV) 6.9 fL Diff Method (test code = DIFFM) Auto Neutrophil (test code = NEUT) 59.5 % 36-70 N Lymphocyte (test code = LYMPH) 31.8 % 12-44 N Monocyte (test code = MONO) 6.1 % 0-11 N Eosinophil (test code = EOS) 2.3 % 0-7 N Basophil (test code = BASO) 0.3 % 0-2 N Neutro Abs (test code = ANEUT) 3.6 K/cumm 1.6-7.4 N Lymph Abs (test code = ALYMPH) 1.9 K/cumm 0.5-4.6 N [place] Abs (test code = AMONO) 0.4 K/cumm 0.0-1.2 N Eos Abs (test code = AEOS) 0.14 K/cumm 0.00-0.74 N Baso Abs (test code = ABASO) 0.0 K/cumm 0.00-0.21 N US CAROTID DUPLEX SCAN, [id number] 22:04:59Examination: Bilateral carotid Doppler ultrasoundLocation code: [id number]: CTA of the carotid arteries July 10, 2017Technique:Clinical history is remarkable for seizure. Real-time sonographic grayscale, color Doppler, and spectral wave form analysis of theextracranial carotid circulation is being performed.Percent stenosis is based upon Volumetric analysis utilizing NASCETcriteria.Discussion:Right carotid system:Peak systolic velocity ICA 55 cm/sec, peak systolic velocity commoncarotid artery 57 cm/sec, ICA/CCA ratio 0.97Appropriate flow is documented within the common carotid artery, minimalplaque localized in the distal common carotid artery. Plaque islocalized within the carotid bulb, no greater than 30% stenosisdocumented. There is appropriate internal and external carotid flow .Vertebral flow is antegrade. Arterial waveforms are appropriate.Left carotid sy stem:Peak systolic velocity ICA 48 cm/sec, peak systolic velocity commoncarotid artery 81 cm/sec, ICA/CCA ratio 0.78Appropriate flow is present in the left comm on carotid artery, calcificplaque localized in the carotid bulb narrows the lume n 30-40%. Plaqueextends into the external carotid artery, internal carotid arter y, nohemodynamically significant stenosis present. Arterial waveforms andvelocit ies are appropriate.Impression:Bilateral carotid bulb atherosclerotic plaque, no hemodynamicallysignificant stenosis present.POC Glucose, [id number] 21:14:00* Test Item Value Reference Range Interpretation Comments POC Glucose (test code = POCGLUC) 176 mg/dL 70-115 H Notify RN or MDIf you consider your patient critically ill, the Debi Accu-Chek InformII metershould not be used for Glucose determinations.Draw a venous Glucose and send to the Main Lab for Analysis. XR FOOT [id number] 18:49:37XR FOOT 2V-LEFTCLINICAL INFORMATION: metatarsal, s/p fall COMPARISONS: None available.FINDINGS:AP, oblique, and lateral images of the foot were obtained.The bones are osteopenic. No fracture is identified. No bony erosionor periosteal reaction is seen. Small posterior and plantar calcanealbone spurs are present. Soft tissue swelling is noted.IMPRESSION: No fracture or malalignment. Location: [facility] Glucose, Blood 2017-07-11 16:43:00* Test Item Value Reference Range Interpretation Comments POC Glucose (test code = POCGLUC) 293 mg/dL 70-115 H If you consider your patient critically ill, the Debi Accu-Chek InformII metershould not be used for Glucose determinations.Draw a venous Glucose and send to the Main Lab for Analysis. POC Glucose, [id number] 11:11:00* Test Item Value Reference Range Interpretation Comments POC Glucose (test code = POCGLUC) 235 mg/dL 70-115 H If you consider your patient critically ill, the Debi Accu-Chek InformII metershould not be used for Glucose determinations.Draw a venous Glucose and send to the Main Lab for Analysis. POC Glucose, [id number] 07:38:00* Test Item Value Reference Range Interpretation Comments POC Glucose (test code = POCGLUC) 150 mg/dL 70-115 H If you consider your patient critically ill, the Debi Accu-Chek InformII metershould not be used for Glucose determinations.Draw a venous Glucose and send to the Main Lab for Analysis. Glycosylated [id number] 05:25:00* Test Item Value Reference Range Interpretation Comments HBA1c (test code = HBA1C) 6.8 % 4.8-5.9 H Thyroid Stimulating Hormone (TSH)2017-07-11 05:25:00* Test Item Value Reference Range Interpretation Comments TSH (test code = TSH) 1.22 mIU/mL 0.270-4.200 N Lipid [id number] 05:23:00* Test Item Value Reference Range Interpretation Comments Cholesterol (test code = CHOL) 164 mg/dL 0-200 N Triglycerides (test code = TRIG) 76 mg/dL 9-200 N HDL (test code = HDL) 84 mg/dL 50-60 H Chol/HDL (test code = CHOLPHDL) 2.0 Ratio 0.0-4.4 N LDL, Calculated (test code = LDLC) 65 0-130 N (NOTE)RISK OF HEART DISEASEPublished by Armenian Heart AssociationAnalyte Optimal Boderline Increased RiskCHOL <200 200-239 >240TRIG <150 150-199 >200HDL Male: >60 <40HDL Female: >60 <50LDL <100 130-159 >160LDL NEAR OPTIMAL IS 100-129 VLDL (test code = VLDL) 15 mg/dL 5-40 N LDL/HDL (test code = LDLPHDL) 1 [id number] 05:23:00* Test Item Value Reference Range Interpretation Comments Phosphorus (test code = PO4) 4.4 mg/dL 2.70-4.50 N Magnesium, [id number] 05:23:00* Test Item Value Reference Range Interpretation Comments Magnesium (test code = MG) 0.9 mg/dL 1.7-2.5 L Basic Metabolic [id number] 05:23:00* Test Item Value Reference Range Interpretation Comments Sodium (test code = NA) 138 mmol/L 135-145 N Potassium (test code = K) 2.6 mmol/L 3.5-5.1 LL ve r rblv Chloride (test code = CL) 93 mmol/L 98-105 L Carbon Dioxide (test code = CO2) 32 mmol/L 22-29 H Glucose (test code = GLU) 143 mg/dL 70-115 H Blood Urea Nitrogen (test code = BUN) 12 mg/dL 8-23 N Creatinine (test code = CREAT) 1.0 mg/dL 0.5-0.9 H Calcium (test code = CA) 9.3 mg/dL 8.3-10.5 N BUN/Creatinine Ratio (test code = BCRATIO) 12.0 Anion Gap (test code = AGAP) 13 mmol/L 7-16 N Estimated GFR (test code = GFR) 58 mL/min/1.73m2 eGFR (estimated Glomerular Filtration Rate) is an estimated value,calculated from the patient's serum creatinine using the MDRD equation.It is NOT the patient's actual GFR. The eGFR provides a more clinicallyuseful measure of kidney disease than serum creatinine alone.This calculation takes sex and race into account, if the informationis provided. If the race is not provided, and the patient isAfrican-Armenian, multiply by 1.212. If sex is not provided, and thepatient is female, multiply by 0.742. Results for patients <18 years ofage have not been validated by the MDRD study and should be interpretedwith caution.eGFR Result Interpretation:eGFR > or = 60 is in the Normal RangeeGFR < 60 may mean kidney diseaseeGFR < 15 may mean kidney failureRanges recommended by the National Kidney Found ation,http://nkdep.nih.gov CBC with [id number] 05:04:00* Test Item Value Reference Range Interpretation Comments WBC (test code = WBC) 6.8 K/cumm 4.4-10.5 N RBC (test code = RBC) 3.94 M/cumm 3.75-5.20 N Hemoglobin (test code = HGB) 12.5 gm/dL 12.2-14.8 N Hematocrit (test code = HCT) 34.9 % 36.5-44.4 L MCV (test code = MCV) 88.6 fL 80-100 N MCH (test code = MCH) 31.7 pg 27.0-32.5 N MCHC (test code = MCHC) 35.8 g/dL 32.0-37.5 N RDW (test code = RDW) 13.0 % 11.5-14.5 N Platelet Count (test code = PLTCT) 222 K/cumm 140-440 N MPV (test code = MPV) 7.2 fL Diff Method (test code = DIFFM) Auto Neutrophil (test code = NEUT) 55.0 % 36-70 N Lymphocyte (test code = LYMPH) 37.5 % 12-44 N Monocyte (test code = MONO) 6.3 % 0-11 N Eosinophil (test code = EOS) 0.8 % 0-7 N Basophil (test code = BASO) 0.4 % 0-2 N Neutro Abs (test code = ANEUT) 3.8 K/cumm 1.6-7.4 N Lymph Abs (test code = ALYMPH) 2.6 K/cumm 0.5-4.6 N [place] Abs (test code = AMONO) 0.4 K/cumm 0.0-1.2 N Eos Abs (test code = AEOS) 0.06 K/cumm 0.00-0.74 N Baso Abs (test code = ABASO) 0.0 K/cumm 0.00-0.21 N Urinalysis [id number] 20:25:00* Test Item Value Reference Range Interpretation Comments Color (test code = COLOR) Straw Yellow,Straw,Pl yellow N Clarity (test code = CLAR) Clear Clear N Specific [place] (test code = SPGR) 1.015 1.001-1.035 N pH (test code = PH) 5.0 5.0-9.0 N Ketone (test code = KET) Negative mg/dL Negative N Glucose (test code = GLUCUR) 1000 mg/dL Negative A Protein (test code = PROT) Negative mg/dL Negative N Bilirubin (test code = BILI) Negative mg/dL Negative N Occult Blood (test code = UDOB) Negative Negative N Urobilinogen (test code = UROB) 0.2 mg/dL 0.2-1.0 N Nitrite (test code = NIT) Negative Negative N Leuk Esterase (test code = LEUK) Negative Negative N Micros Exam (test code = MEXAM) Indicated Epithelial Cells (test code = EPI) 10-14 /LPF 0-30 A WBC, Urine (test code = UWBC) 0-5 /HPF 0-5 N RBC, Urine (test code = URBC) 0-3 /HPF 0-5 A Bacteria (test code = BACT) Few /HPF POC Glucose, [id number] 20:19:00* Test Item Value Reference Range Interpretation Comments POC Glucose (test code = POCGLUC) 210 mg/dL 70-115 H Notify RN or MDIf you consider your patient critically ill, the Debi Accu-Chek InformII metershould not be used for Glucose determinations.Draw a venous Glucose and send to the Main Lab for Analysis. POC Glucose, [id number] 16:18:00* Test Item Value Reference Range Interpretation Comments POC Glucose (test code = POCGLUC) 264 mg/dL 70-115 H If you consider your patient critically ill, the Debi Accu-Chek InformII metershould not be used for Glucose determinations.Draw a venous Glucose and send to the Main Lab for Analysis. CT NECK ANGIOGRAPHY W/WO [id number] 14:48:58EXAM: CTA BRAINEXAM: CTA NECKINDICATION: SeizureCOMPARISON: CT head dated July 10, 2017TECHNIQUE: Rapid acquisition spiral CT images of the brain and neck were obtainedbetween the aortic arch and the cranial vertex during intravenousinfusion of iodinated contrast for the purposes of CT angiography. 3-DCT angiographic images are created using MIP technique at theacquisition workstation. The source images are also presented forinterpretation. IV contrast: 100 cc of Isovue-370DLP: 1002.1 mGy-cmFINDINGS:NECK CTA:Aortic arch: The great vessels originate from the aortic arch in thestandard configuration. No origin stenosis is identified. The vertebralartery origins are patent bilaterally.Carotid arteries: The common carotid arteries are normal in course andcaliber. There are avid right calcifi cations of the bilateral carotidbifurcations with no flow-limiting stenosis. The external carotidarteries are normal. The cervical internal carotid artery is no rmal noevidence of stenosis.Vertebral arteries: The left vertebral artery is dom inant. The vertebralarteries are normal in course.The soft tissues of the neck a nd other incidental structures are normal.The lung apices are clear.There are de generative changes of the cervical spine.BRAIN CTA:There are atherosclerotic bessy cifications of the bilateral carotidsiphons with moderate flow-limiting stenosis bilaterally. The cervicaland petrous internal carotid arteries are normal. Ther e is focalnarrowing of the bilateral M1 segments with mild flow limiting stenosi s.The anterior cerebral arteries are normal. There is a bilobedapproximately 3 m m aneurysm of the proximal left anterior cerebralartery. There is a persistent f etal origin of the right posteriorcerebral artery.The distal vertebral arteries are patent. The vertebrobasilar junctionand basilar artery are normal. The poste rior cerebral and superiorcerebellar arteries are patent. Normal opacification o f the bilateralPICAs.There is vessel irregularity of the distal intracranial vas culaturelikely representing chronic atherosclerotic disease.No vascular malforma tion or branch occlusion is identified. The deepcerebral veins and major venous sinuses are patent.The brain parenchyma and intracranial structures are normal. Theparanasal sinuses and mastoid air cells are clear. Orbits and globes areintac t. No calvarial lesions.IMPRESSION: 1. Moderate flow-limiting stenosis of the b ilateral carotid siphons.2. Mild flow-limiting stenosis of the bilateral M1 seg ments.3. Vessel irregularity of the distal intracranial vasculature likelyrepre senting atherosclerotic disease.4. 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 Mild atherosclerotic disease of the carotid bifurcations with noflow-limiting stenosis.(All qualitative and quantitative assessments of carot id bifurcation andproximal internal carotid artery stenosis are made referencing thedistal internal carotid artery {NASCET criteria}.)LOCATION: R16CT HEAD ANGIOGRAPHY W/WO [id number] 14:48:58EXAM: CTA BRAINEXAM: CTA NECKINDICATION: SeizureCOMPARISON: CT head dated July 10, 2017TECHNIQUE: Rapid acquisition spiral CT images of the brain and neck were obtainedbetween the aortic arch and the cranial vertex during intravenousinfusion of iodinated contrast for the purposes of CT angiography. 3-DCT angiographic images are created using MIP technique at theacquisition workstation. The source images are also presented forinterpretation. IV contrast: 100 cc of Isovue-370DLP: 1002.1 mGy-cmFINDINGS:NECK CTA:Aortic arch: The great vessels originate from the aortic arch in thestandard configuration. No origin stenosis is identified. The vertebralartery origins are patent bilaterally.Carotid arteries: The common carotid arteries are normal in course andcaliber. There are avid right calcifi cations of the bilateral carotidbifurcations with no flow-limiting stenosis. The external carotidarteries are normal. The cervical internal carotid artery is no rmal noevidence of stenosis.Vertebral arteries: The left vertebral artery is dom inant. The vertebralarteries are normal in course.The soft tissues of the neck a nd other incidental structures are normal.The lung apices are clear.There are de generative changes of the cervical spine.BRAIN CTA:There are atherosclerotic bessy cifications of the bilateral carotidsiphons with moderate flow-limiting stenosis bilaterally. The cervicaland petrous internal carotid arteries are normal. Ther e is focalnarrowing of the bilateral M1 segments with mild flow limiting stenosi s.The anterior cerebral arteries are normal. There is a bilobedapproximately 3 m m aneurysm of the proximal left anterior cerebralartery. There is a persistent f etal origin of the right posteriorcerebral artery.The distal vertebral arteries are patent. The vertebrobasilar junctionand basilar artery are normal. The poste rior cerebral and superiorcerebellar arteries are patent. Normal opacification o f the bilateralPICAs.There is vessel irregularity of the distal intracranial vas culaturelikely representing chronic atherosclerotic disease.No vascular malforma tion or branch occlusion is identified. The deepcerebral veins and major venous sinuses are patent.The brain parenchyma and intracranial structures are normal. Theparanasal sinuses and mastoid air cells are clear. Orbits and globes areintac t. No calvarial lesions.IMPRESSION: 1. Moderate flow-limiting stenosis of the b ilateral carotid siphons.2. Mild flow-limiting stenosis of the bilateral M1 seg ments.3. Vessel irregularity of the distal intracranial vasculature likelyrepre senting atherosclerotic disease.4. 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 Mild atherosclerotic disease of the carotid bifurcations with noflow-limiting stenosis.(All qualitative and quantitative assessments of carot id bifurcation andproximal internal carotid artery stenosis are made referencing thedistal internal carotid artery {NASCET criteria}.)LOCATION: R16XR CHEST 1 [id number] 13:27:48CHEST 1 VIEWCLINICAL INFORMATION: AMSCOMPARISON: Chest x-ray dated November 02, 2016FINDINGS:The cardiac silhouette is mildly enlarged. There is prominence of thecentral pulmonary vasculature and interstitial markings. Cephalizationis noted. No pneumothorax or pleural effusion is present. The bonesare grossly intact.IMPRESSION:Enlarged cortex silhouette with pulmonary vascular congestion.LOCATION: R16CK [id number] 13:25:00* Test Item Value Reference Range Interpretation Comments CK (test code = CK) n/a U/L 26-192 N CKMB (test code = CKMB) 2.5 ng/mL 0.0-2.8 N CKMB% (test code = CKMBP) 0.0 % 0.0-3.4 N Troponin [id number] 13:18:00* Test Item Value Reference Range Interpretation Comments Troponin T (test code = OLIVE) <0.010 ng/mL 0.000-0.090 N Thyroid Stimulating Hormone (TSH)2017-07-10 13:18:00* Test Item Value Reference Range Interpretation Comments TSH (test code = TSH) 4.63 mIU/mL 0.270-4.200 H Comprehensive Metabolic [id number] 13:12:00* Test Item Value Reference Range Interpretation Comments Sodium (test code = NA) 136 mmol/L 135-145 N Potassium (test code = K) 3.1 mmol/L 3.5-5.1 L Chloride (test code = CL) 91 mmol/L 98-105 L Carbon Dioxide (test code = CO2) 26 mmol/L 22-29 N Glucose (test code = GLU) 215 mg/dL 70-115 H Blood Urea Nitrogen (test code = BUN) 14 mg/dL 8-23 N Creatinine (test code = CREAT) 1.0 mg/dL 0.5-0.9 H Calcium (test code = CA) 9.8 mg/dL 8.3-10.5 N Prot Total (test code = TP) 7.3 g/dL 6.4-8.3 N Albumin (test code = ALB) 4.5 g/dL 3.5-5.2 N A/G Ratio (test code = AGRATIO) 1.6 Ratio Globulin (test code = GLOB) 2.8 2.9-3.1 L Bili Total (test code = TBIL) 0.3 mg/dL 0.1-0.9 N Alk Phos (test code = APHOS) 79 U/L 35-104 N AST (test code = AST) 12 U/L 1-32 N ALT (test code = ALT) 7 U/L 1-33 N BUN/Creatinine Ratio (test code = BCRATIO) 14.0 Anion Gap (test code = AGAP) 19 mmol/L 7-16 H Estimated GFR (test code = GFR) 58 mL/min/1.73m2 eGFR (estimated Glomerular Filtration Rate) is an estimated value,calculated from the patient's serum creatinine using the MDRD equation.It is NOT the patient's actual GFR. The eGFR provides a more clinicallyuseful measure of kidney disease than serum creatinine alone.This calculation takes sex and race into account, if the informationis provided. If the race is not provided, and the patient isAfrican-Armenian, multiply by 1.212. If sex is not provided, and thepatient is female, multiply by 0.742. Results for patients <18 years ofage have not been validated by the MDRD study and should be interpretedwith caution.eGFR Result Interpretation:eGFR > or = 60 is in the Normal RangeeGFR < 60 may mean kidney diseaseeGFR < 15 may mean kidney failureRanges recommended by the National Kidney Found ation,http://nkdep.nih.gov Partial Thromboplastin [id number] 13:05:00* Test Item Value Reference Range Interpretation Comments aPTT (test code = PTT) 42.30 seconds 24.39-37.25 H Prothrombin [id number] 13:05:00* Test Item Value Reference Range Interpretation Comments PT (test code = PT) 23.60 seconds 9.78-13.35 H INR (test code = INR) 2.09 Ratio 0.6-1.2 H CBC with [id number] 12:55:00* Test Item Value Reference Range Interpretation Comments WBC (test code = WBC) 7.2 K/cumm 4.4-10.5 N RBC (test code = RBC) 4.29 M/cumm 3.75-5.20 N Hemoglobin (test code = HGB) 13.2 gm/dL 12.2-14.8 N Hematocrit (test code = HCT) 39.5 % 36.5-44.4 N MCV (test code = MCV) 92.0 fL 80-100 N MCH (test code = MCH) 30.9 pg 27.0-32.5 N MCHC (test code = MCHC) 33.5 g/dL 32.0-37.5 N RDW (test code = RDW) 13.0 % 11.5-14.5 N Platelet Count (test code = PLTCT) 244 K/cumm 140-440 N MPV (test code = MPV) 7.5 fL Diff Method (test code = DIFFM) Auto Neutrophil (test code = NEUT) 64.7 % 36-70 N Lymphocyte (test code = LYMPH) 29.1 % 12-44 N Monocyte (test code = MONO) 4.2 % 0-11 N Eosinophil (test code = EOS) 1.6 % 0-7 N Basophil (test code = BASO) 0.5 % 0-2 N Neutro Abs (test code = ANEUT) 4.6 K/cumm 1.6-7.4 N Lymph Abs (test code = ALYMPH) 2.1 K/cumm 0.5-4.6 N [place] Abs (test code = AMONO) 0.3 K/cumm 0.0-1.2 N Eos Abs (test code = AEOS) 0.11 K/cumm 0.00-0.74 N Baso Abs (test code = ABASO) 0.0 K/cumm 0.00-0.[address] HEAD OR BRAIN WO [id number] 12:51:50CT HEAD WITHOUT CONTRASTLOCATION: R16 INDICATION: AMS COMPARISON: 11/02/2016TECHNIQUE: Axial scans were obtained from skull base to the vertex.Coronal and sagittal reconstructions obtained from the axial data. One or more of the following dose reduction techniques were used:Automated exposure control, adjustment of the mA and/or kV according topatient size, and/or utilization of iterative reconstruction techniqueFINDINGS: There is no evidence of hemorrhage or hydrocephalus. There isatherosclerotic calcification of the carotid siphons and vertebralarte eun.There is right gangliocapsular, periventricular and deep white matterhypoat tenuation compatible with microangiopathic ischemic disease.There is no mass eff ect or midline shift. There is no abnormal intra nor extra-axial fluid collectio n. The calvarium is intact without fracture. The visualized paranasal sinuses and mastoids are clear. IMPRESSION: No intracranial hemorrhage.Microangiopathi c ischemic disease. If acute stroke is clinicallysuspected, correlation with MR I or close interval CT follow-up may bebeneficial.CHEM [id number] 10:11:00 1.9[facility]CHE[facility] [id number] 10:11[facility]09:00* Test Item Value Reference Range Interpretation Comments Split Point Rapid (test code = Split Point Rapid) 0.5 min [facility]:09:00* Test Item Value Reference Range Interpretation Comments ACT (TEG) Rapid (test code = ACT (TEG) Rapid) 113 s 86-118 [facility] 09:09:00* Test Item Value Reference Range Interpretation Comments Max Amplitude Rapid (test code = Max Amplitude Rapid) 68 mm 52-71 [facility] 09:09:00* Test Item Value Reference Range Interpretation Comments Angle Rapid (test code = Angle Rapid) 78 degrees 64-80 [facility].3[facility] [id number] 09:09:00* Test Item Value Reference Range Interpretation Comments R-time Rapid (test code = R-time Rapid) 0.7 min 0.4-0.7 [facility] 09:09:0010.5[facility] [id number] 09:09:00* Test Item Value Reference Range Interpretation Comments K-time Rapid (test code = K-time Rapid) 0.8 min 0.6-2.3 [facility] 09:09:001.09[facility] [id number] 09:09:00* Test Item Value Reference Range Interpretation Comments PTT (test code = PTT) 29.7 s 22.9-35.8 [facility] 09:09:00* Test Item Value Reference Range Interpretation Comments PT (test code = PT) 14.3 s 12.0-14.7 [facility] [id number] 08:53:19Negative (04/06/17 3:53 AM)[facility] AND [id number] 08:53:19Performed (04/06/17 3:53 AM)[facility] AND [id number] 08:53:19Negative (04/06/17 3:53 AM)[facility] AND [id number] 08:53:190.2[facility]UR[facility] AND [id number] 08:53:19Small *ABN*(04/06/17 3:53 AM)[facility] AND [id number] 08:53:19Negative *NA*(04/06/17 3:53 AM)[facility] AND [id number] 08:53:19* Test Item Value Reference Range Interpretation Comments UA pH (test code = UA pH) 6.0 1 5.0-8.0 [facility] [id number] 08:53:19Trace *ABN*(04/06/17 3:53 AM)[facility] AND [id number] 08:53:19Yellow *NA*(04/06/17 3:53 AM)[facility] AND [id number] 08:53:19* Test Item Value Reference Range Interpretation Comments UA Spec Grav (test code = UA Spec Grav) 1.010 1 [facility] AND [id number] 08:53:19Slight Cloudy (04/06/17 3:53 AM)[facility] DallasCARDIAC [id number] 07:55:10<0.02[facility] DallasCHEM [id number] 07:55:79821LWBaylor Scott & [facility] – DallasCHEM PANEL 2017-04-06 07:55:103.5[facility] DallasCHEM [id number] 07:55:100.2MTex[facility] HospitalCHEM [id number] 07:55:[address] [place], [place] [address]CHEM [id number] 07:55:1015[facility] DallasCHEM [id number] 07:55:10 0.1MTex[facility] HospitalCHEM [id number] 07:55:100.3MT[facility] HospitalCHEM FRGUQ3628-07-20 07:55:1015[facility] DallasCHEM [id number] 07:55:1074[facility] DallasCHEM [id number] 07:55:104.0[facility] DallasCHEM [id number] 07:55:107.5[facility] DallasCHEM PANEL 2017-04-06 07:55:103.9[facility] DallasGciepeKTODMBCERHEN5217-25-17 07:55:1014.5 [facility] DallasNrkhayPXIGUOJFUHDX8746-21-06 07:55:1056[facility] CCCJYRQJXXXB7758-89-23 07:55:1027[facility] DallasRcmjomPLXJEFQFNIPO4259-28-32 07:55:1094[facility] DallasFxkjotWCWPLRSORKDY1806-05-79 07:55:103.5[facility] DallasYexreyQPKPXDIIGEVK7734-85-68 07:55:12197SWB[facility] RMHCCDRTRXCP7820-08-57 07:55:101.00[facility] DallasPuojtzXSEQKICGGGOT2997-29-72 07:55:1018[facility] DallasDnpmvvJDSRFJGIJOYV1966-83-88 07:55:109.8[facility] DallasLbmmhnZADASMWETYNW1774-81-07 07:55:94612HNB[facility] WXKHKTDSKK3233-27-93 07:55:1013.8[facility] DallasEznzpaVLWKPHMACM5630-65-68 07:55:1033.0[facility] DallasGbeutuZGESMGPNHR1058-69-43 07:55:10* Test Item Value Reference Range Interpretation Comments MCH (test code = MCH) 29.9 pg 27.0-31.0 [facility] DallasYtosvwEFNHTKIWIJ7348-83-38 07:55:1090.4[facility] XQZCERZJEU8994-28-37 07:55:1038.8[facility] DallasCfbphwERFJEPUNFH1794-22-43 07:55:107.6MTex[facility] HospitalVzkaylBWSEWGPLOI0635-32-36 07:55:22243NUB[facility] – DallasJxqqmsLXMDIBJCML1104-53-17 07:55:1012.8[facility] DallasHEMATOLOGY 2017-04-06 07:55:104.29[facility] DallasEcmumwEYBUEYYBTZ5622-96-04 07:55:109.4[facility] DallasDjcxcbSKRIBIXKZV5424-82-51 07:55:[address] [place] [address] AZTSWVFLEV6034-53-93 07:55:101.1MTex[facility] HospitalJrrfghPGHPTECOJO0717-04-37 07:55:[address] [place], [place] [address]ZcpvbxBXTAYVJDTM0447-51-85 07:55:107.8[facility] DallasDkkvuzSQBRGFWWVE6254-05-28 07:55:100.4[facility] DallasHEMATOLOGY 2017-04-06 07:55:[address] [place], [place] [address]PzszksUNKMTBIWOB0035-14-18 07:55:104.4[facility] DallasCekrbmKZTBJIHCHU1351-71-24 07:55:100.8[facility] IXZVJNARAG1994-33-27 07:55:1082.4[facility]
--- NOTE | 2020-02-24 21:02 | Emergency Department Note ---
History of Present Illnes History of Present Illness History of Present Illness This is a 79 year old female presents to the ED after she self removed PEG tube. Seen at bedside NAD. Per family member patient has been able to tolerate po for the past week . 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 Any updates have been documented here. Past Medical History Recent Fever: No Clinical Suspicion of Infectio: No New/Unexplained Change in Ment: No Past Medical History: Diabetes, CVA, A-Fib, Seizure Disorder, Hyperlipedemia Other Medical History: Muscle wasting Ataxia Dysphagia Cognitive communication Dementia Insomnia Elevated WBC Past Surgical History: Hysterectomy Other Surgery: G-tube Social History Smoking Cessation: Never Smoker Alcohol Use: None Any Illegal Drug Use: No Review of Systems Review of Systems Constitutional: no symptoms EENTM: no symptoms Cardiovascular: no symptoms Respiratory: no symptoms Gastrointestinal: no symptoms Genitourinary: no symptoms Musculoskeletal: no symptoms Neurological: no symptoms Psychological: no symptoms Endocrine: no symptoms Hematological/Lymphatic: no symptoms Review of other systems All other systems reviewed and negative. Physical Exam Related Data Allergies: Coded Allergies: No Known Allergies (Unverified , 08/31/18) Physical Exam CONSTITUTIONAL Constitutional: well-developed, well-nourished HENT HENT: normocephalic, atraumatic, oropharynx clear/moist, nose normal HENT L/R: left ext ear normal, right ext ear normal EYES Eyes: PERRL, conjunctivae normal NECK Neck: ROM normal PULMONARY Pulmonary: effort normal, breath sounds normal CARDIOVASCULAR Cardiovascular: regular rhythm, heart sounds normal, capillary refill normal, normal rate GASTROINTESTINAL Abdominal: soft, nontender, bowel sounds normal, other (PEG orifice/stoma intact. No per-stomal erythema noted. ) GENITOURINARY Genitourinary: exam deferred SKIN Skin: warm, dry MUSCULOSKELETAL Musculoskeletal: ROM normal NEUROLOGICAL Neurological: alert, no gross motor or sensory deficits PSYCHOLOGICAL Psychological: mood/affect normal, judgement normal Assessment & Plan Assessment & Plan Final Impression: (1) Pain around PEG tube site (2) Dysphagia Assessment & Plan Per family member, patient has been able to tolerate PO well. prior history of infection around PEG site. Family member does not wish to have PEG tube removed. Patient given Rx keflex. Plan to discharge to home. Depart Disposition: HOME, SELF-CARE Last Vital Signs Date Time Temp Pulse Resp B/P (MAP) Pulse Ox O2 Delivery O2 Flow Rate FiO2 02/24/20 21:46 156/78 100 02/24/20 21:40 20 02/24/20 21:39 73 02/24/20 20:55 98.3 Home Meds Reported Medications Tramadol Hcl* (ULTRAM 50MG*) 50 Mg Tab, 50 MG PEG Q8H PRN for PAIN, TAB 08/31/18 Potassium Chloride (POTASSIUM CHLORIDE) 40 Meq/15 Ml Liquid, 20 MEQ PEG DAILY 20 MEQ/15ML 08/31/18 Polyethylene Glycol 3350 (MIRALAX) 17 Gm Powd.pack, 17 G PEG DAILY 08/31/18 Levetiracetam (LEVETIRACETAM) 500 Mg Tablet, 100 MG PEG BID LIQUID ( 100MG/ML) GIVE 100MG 08/31/18 Magnesium Oxide (MAGOX 400) 400 Mg Tablet, 1 TAB PEG DAILY 08/31/18 Lamotrigine (LAMOTRIGINE) 100 Mg Tablet, 25 MG PEG BID, #30 TAB 08/31/18 Insulin Human Nph (HUMULIN N) 100 Units/Ml Ml, 8 UNITS SC Q8H 08/31/18 Glipizide (GLIPIZIDE) 5 Mg Tablet, 10 MG PO BID, TAB 08/31/18 Famotidine (FAMOTIDINE) 20 Mg Tab, 20 MG PEG DAILY, #30 TAB 08/31/18 Enalapril Maleate (VASOTEC) 10 Mg Tablet, 20 MG PEG DAILY 08/31/18 [Diabetisource Liquid] No Conflict Check, 65 ML PEG 08/31/18 Lorazepam* (ATIVAN*) 0.5 Mg Tablet, 0.5 MG PO Q8H PRN for ANXIETY, #60 TAB 08/31/18 Atorvastatin Calcium (ATORVASTATIN CALCIUM) 20 Mg Tablet, 40 MG PO HS, #30 TAB 08/31/18 [Apixaban] No Conflict Check, 5 MG PEG Q12H 08/31/18 Zolpidem Tartrate (AMBIEN) 5 Mg Tablet, 5 MG PEG HS, #30 TAB 08/31/18 LEIGH MADRID DO February 24, 2020 21:02
[2020-02-24 21:40] VITALS: BP 175/98
== END 2020-02-24 21:55 | disposition home or self-care (01) ==
LOC: ER 20:55
DX: Z43.1 Encounter for attention to gastrostomy (principal); R10.9 Unspecified abdominal pain; I10 Essential (primary) hypertension; E11.9 Type 2 diabetes mellitus without complications; I48.91 Unspecified atrial fibrillation; E78.5 Hyperlipidemia, unspecified; G40.909 Epilepsy, unspecified, not intractable, without status epilepticus; Z86.73 Personal history of transient ischemic attack (TIA), and cerebral infarction without residual deficits
CPT/HCPCS: 99282